=== PATIENT | male | born 1960 | race Hispanic/Latino ===

== ENCOUNTER 2018-02-25 12:25 | Inpatient (IN) | payer OTHER, BC ==
--- NOTE | 2018-02-25 12:46 | ED PDOC ---
Arrival/HPI - General Chief Complaint: Psychiatric Evaluation Time Seen by Provider: 02/25/18 12:45 Historian: Patient - History of Present Illness Narrative History of Present Illness (Text): 02/25/18 12:46 This 58 yo male with pmh PTSD, and anxiety, presents to this ED c/o feeling anxious, and with suicidal ideation for about a week. Patient stated he is in a relationship with a woman. He stated he has had a few problems with his girlfriend. He stated he is not able to get this issues off his head. He is concern for his safety. He has been thinking of taking pills, or jumping off a bridge. Denies other somatic complains. Time/Duration: Other (see hpi) Context: Home Past Medical History - Provider Review Nursing Documentation Reviewed: Yes - Infectious Disease Hx of Infectious Diseases: None - Cardiac Hx Hypertension: Yes - Pulmonary Hx Respiratory Disorders: No - Neurological Hx Neurological Disorder: No - HEENT Hx HEENT Disorder: No - Renal Hx Renal Disorder: No - Endocrine/Metabolic Hx Endocrine Disorders: No - Hematological/Oncological Hx Blood Disorders: No - Integumentary Hx Dermatological Disorder: No - Musculoskeletal/Rheumatological Hx Musculoskeletal Disorders: No - Gastrointestinal Hx Gastrointestinal Disorders: No - Genitourinary/Gynecological Hx Genitourinary Disorders: No - Psychiatric Hx Anxiety: Yes Hx Depression: Yes Hx Post Traumatic Stress Disorder: Yes Hx Substance Use: No - Surgical History Hx Orthopedic Surgery: Yes (b/l shldr, b/l knees) Family/Social History - Physician Review Nursing Documentation Reviewed: Yes Family/Social History: Other (noncontributory) Smoking Status: Never Smoked Hx Alcohol Use: No Hx Substance Use: No Allergies/Home Meds Allergies/Adverse Reactions: Allergies No Known Allergies Allergy (Verified 02/25/18 12:46) Home Medications: Home Meds Medication Instructions Recorded Confirmed Unobtainable 02/25/18 02/25/18 Review of Systems - Review of Systems Constitutional: Normal. absent: Fatigue, Weight Change, Fevers Eyes: Normal ENT: Normal Respiratory: Normal Cardiovascular: Normal Gastrointestinal: Normal Genitourinary Male: Normal Musculoskeletal: Normal Skin: Normal Neurological: Normal Endocrine: Normal Hemo/Lymphatic: Normal Psychiatric: Anxiety, Depression, Suicidal Ideation, Other (denies HI) Physical Exam Vital Signs Temp Pulse Resp BP Pulse Ox 02/25/18 12:54 98.7 F 103 H 18 177/115 H 99 Temperature: Afebrile Blood Pressure: Normal Pulse: Regular Respiratory Rate: Normal Appearance: Positive for: Well-Appearing, Non-Toxic, Comfortable Pain Distress: None Mental Status: Positive for: Alert and Oriented X 3 - Systems Exam Head: Present: Atraumatic, Normocephalic Pupils: Present: PERRL Extroacular Muscles: Present: EOMI Conjunctiva: Present: Normal Mouth: Present: Moist Mucous Membranes Neck: Present: Normal Range of Motion Respiratory/Chest: Present: Clear to Auscultation, Good Air Exchange. No: Respiratory Distress, Accessory Muscle Use Cardiovascular: Present: Regular Rate and Rhythm, Normal S1, S2. No: Murmurs Abdomen: No: Tenderness, Distention, Peritoneal Signs Back: Present: Normal Inspection Upper Extremity: Present: Normal Inspection. No: Cyanosis, Edema Lower Extremity: Present: Normal Inspection. No: Edema Neurological: Present: GCS=15, CN II-XII Intact, Speech Normal Skin: Present: Warm, Dry, Normal Color. No: Rashes Psychiatric: Present: Alert, Oriented x 3, Anxious, Depressed Mood, Suicidal Ideation. No: Homicidal Ideation, Delusional, Hallucinations, Intoxicated Medical Decision Making ED Course and Treatment: 02/25/18 13:15 Patient is medical clear for psychiatric admission 02/25/18 13:38 Soraida LEDESMA saw patient , and spoke with Dr. Rivas who recommended admission. Patient already signed consent for admission. Dx. Major Depression Re-evaluation Time: 13:39 Reassessment Condition: Re-examined, Improving,but remains with symptoms - Lab Interpretations Lab Results: 02/25/18 13:10 02/25/18 13:10 Lab Results 02/25/18 13:10: Alcohol, Quantitative < 10 02/25/18 13:10: Salicylates < 1 L, Acetaminophen < 10.0 L 02/25/18 13:10: Sodium 137, Potassium 3.7, Chloride 99, Carbon Dioxide 26, Anion Gap 15, BUN 10, Creatinine 0.5 L, Est GFR ( Amer) > 60, Est GFR ( Non-Af Amer) > 60, Random Glucose 135 H, Calcium 9.8, Magnesium 1.8, Total Bilirubin 0.7, AST 31, ALT 42, Alkaline Phosphatase 72, Total Protein 7.2, Albumin 4.5, Globulin 2.7, Albumin/Globulin Ratio 1.7 02/25/18 13:10: WBC 10.5, RBC 4.86, Hgb 14.3, Hct 41.2 L, MCV 84.8, MCH 29.4, MCHC 34.7, RDW 12.9, Plt Count 354, MPV 9.2, Gran % 82.1 H, Lymph % (Auto) 10.4 L, [place] % (Auto) 6.4 H, Eos % (Auto) 0.7 L, Baso % (Auto) 0.4, Gran # 8.64 H, Lymph # (Auto) 1.1 L, [place] # (Auto) 0.7 H, Eos # (Auto) 0.1, Baso # (Auto) 0.04 I have reviewed the lab results: Yes Interpretation: No clinic. lab abnormalty - RAD Interpretation Narrative RAD Interpretations (Text): 02/25/18 13:30 CHEST X-RAYS: FINDINGS: LUNGS: No active pulmonary disease. PLEURA: No significant pleural effusion identified, no pneumothorax apparent. CARDIOVASCULAR: Normal. OSSEOUS STRUCTURES: No significant abnormalities. VISUALIZED UPPER ABDOMEN: Normal. OTHER FINDINGS: None. IMPRESSION: No active disease. Radiology Orders: 02/25/18 12:45 CHEST PORTABLE [RAD] Stat - Medication Orders Current Medication Orders: Discontinued Medications Lorazepam (Ativan) 1 mg PO ONCE ONE PRN Reason: Protocol Stop: 02/25/18 12:47 Last Admin: 02/25/18 13:01 Dose: 1 mg Disposition/Present on Arrival - Present on Arrival Any Indicators Present on Arrival: No History of DVT/PE: No History of Uncontrolled Diabetes: No Urinary Catheter: No History of Decub. Ulcer: No History Surgical Site Infection Following: None - Disposition Have Diagnosis and Disposition been Completed?: Yes Diagnosis: Major depression Disposition: HOSPITALIZED Disposition Time: 13:40 Patient Plan: Admission Patient Problems: Current Active Problems Problem Status Onset Major depression Acute Condition: STABLE Forms: [email or web address] (Djiboutian)
[2018-02-25 13:16] LABS: BASO # 0.04 K/mm3 (0.0-2.0); BASO % 0.4 % (0.0-3.0); EOS # 0.1 (0.0-0.7); EOS % 0.7 % (1.5-5.0); GRAN # 8.64 (1.4-6.5); GRAN % 82.1 % (50.0-68.0); HEMOGLOBIN 14.3 g/dL (14.0-18.0); LYMPH # 1.1 (1.2-3.4); LYMPH % 10.4 % (22.0-35.0); MEAN CELL VOLUME 84.8 fl (80.0-105.0); MEAN CORPUSCULAR HEMOGLOBIN 29.4 pg (25.0-35.0); MEAN CORPUSCULAR HGB CONC 34.7 g/dl (31.0-37.0); MEAN PLATELET VOLUME 9.2 fl (7.0-11.0); MONO # 0.7 (0.1-0.6); MONO % 6.4 % (1.0-6.0); RBC 4.86 10^6/uL (3.5-6.1); RED CELL DISTRIBUTION WIDTH 12.9 % (11.5-14.5); WHITE BLOOD COUNT 10.5 10^3/ul (4.5-11.0)
--- NOTE | 2018-02-25 13:19 | RAD ---
Date of service: 02/25/2018 HISTORY: pes eval COMPARISON: No prior. FINDINGS: LUNGS: No active pulmonary disease. PLEURA: No significant pleural effusion identified, no pneumothorax apparent. CARDIOVASCULAR: Normal. OSSEOUS STRUCTURES: No significant abnormalities. VISUALIZED UPPER ABDOMEN: Normal. OTHER FINDINGS: None. IMPRESSION: No active disease.
[2018-02-25 13:29] LABS: ACETAMINOPHEN < 10.0 ug/ml (10.0-20.0); ALB/GLOB RATIO 1.7 (1.1-1.8); ALBUMIN 4.5 g/dL (3.0-4.8); ALT/SGPT 42 U/L (7-56); AST/SGOT 31 U/L (17-59); BLOOD UREA NITROGEN 10 mg/dL (7-21); CALCIUM 9.8 mg/dL (8.4-10.5); GFR AFRICAN-AMERICAN > 60; GFR NON-AFRICAN AMERICAN > 60; SALICYLATE < 1 mg/dL (2.0-20.0)
--- NOTE | 2018-02-25 14:12 | CARD ---
APPROVED REPORT Date of service: 02/25/2018 EKG Measurement Heart [id number] <Conclusion> Sinus tachycardia Nonspecific ST-T abnormalities Borderline ECG
[2018-02-25 14:29] LABS: URINE BILIRUBIN NEGATIVE (NEGATIVE); URINE BLOOD NEGATIVE (NEGATIVE); URINE GLUCOSE (UA) NEGATIVE (NEGATIVE); URINE LEUKOCYTE ESTERASE TRACE Leu/uL (NEGATIVE); URINE PROTEIN NEGATIVE mg/dL (<30 mg/dL); URINE UROBILINOGEN 0.2 E.U./dL (<1 E.U./dL)
[2018-02-25 14:30] LABS: URINE APPEARANCE CLEAR (CLEAR); URINE COLOR YELLOW (YELLOW)
[2018-02-25 14:37] LABS: URINE BACTERIA FEW (NEG); URINE RBC 0 - 2 /hpf (0-2)
[2018-02-25 14:46] LABS: BENZODIAZEPINES, UR NEGATIVE (NEGATIVE)
[2018-02-25 14:52] LABS: BARBITURATES, UR NEGATIVE (NEGATIVE); OPIATES, UR NEGATIVE (NEGATIVE); PHENCYCLIDINE, UR NEGATIVE (NEGATIVE)
[2018-02-25 15:01] VITALS: O2SAT 97
[2018-02-25] MEDS ORDERED: Alum-Mag Hydrox-Simethicone Susp (30 mL) PO PRN (17:24)
[2018-02-25] MEDS ORDERED: Magnesium Hydroxide Susp 30 ml UD PO PRN (17:25)
--- NOTE | 2018-02-25 19:03 | PCM.BM ---
Treatment Plan Problems - Problems identified on initial assessmt high risk;suicide Date Initiated: 02/25/18 Time Initiated: 19:01 Assessment reference: NA Status: Active hopelessnes.helplessness Date Initiated: 02/25/18 Time Initiated: 19:02 Assessment reference: NA Status: Active ineffective coping Date Initiated: 02/25/18 Time Initiated: 19:03 Assessment reference: NA Status: Active altered sleep pattern Date Initiated: 02/25/18 Time Initiated: 19:03 Assessment reference: NA Status: Active Treatment assets and liabiliti Patient Assests: adapts well, cooperative, ADL independent, good support system , negotiates basic needs, financial stabiity Patient Liabilities: relationship conflicts - Milieu Protocol Maintain good personal hygiene: every shift Encourage regular showers, every shift Remind patient to perform daily oral care, every shift Assist patient to perform ADL's Conduct patient checks and document Observation sheet: Q15 minutes Maintain personal safety: every shift Educate patient to report safety concerns to staff, every shift Monitor environment for contraband/sharps Medication safety: Monitor for expected outcome, potential side effects: every shift, Assess barriers to learning: every shift, Assess readiness for medication education: every shift Family Contact - Goals for Treatment Patient goals for treatment: 'TO GET BETTER" Discharge/Continuing Care - Education Needs Education Needs: Patient Medication, Patient Diagnosis/Disease Process, Patient Coping Skills - Discharge Discharge Criteria: Tolerates medication w/o severe side effects, Free of Suicidal thoughts, Normal sleep pattern, Ability to care for self
--- NOTE | 2018-02-26 13:06 | PCM.PSYCH ---
Initial Psychiatric Evaluation - Initial Psychiatric Evaluation Type of Admission: Voluntary Legal Status: Capacity (pt has a capacity to sign consent for treatment ) Chief Complaint (in patient's own words): "I was in the darkest moment of my life, I pulled over twice with the plan to jump off the bridge, I was thinking about cutting myself, or overdose or jump off the bridge for the past two weeks....but yesterday was the first time when I acted on my thoughts" Patient's Reaction to Hospitalization: pt was admitted for evaluation and stabilization of depressive symptoms, inability to function, pt lost 20Lb for the past three weeks, pt also had SI with the plan to jump off the bridge or hut his wrists or over dose on pills. History of Present Illness and Precipitating Events: Shortly patient is 58 year old male, no history of being admitted to the psychiatric inpatient unit, patient was officially diagnosed with PTSD after , patient was brought in by ambulance for evaluation and stabilization of depressive symptoms, suicidal ideation with a plan to jump off the bridge, despite the fact patient has outpatient psychiatrist patient requires further evaluation and stabilization in acute psychiatric inpatient unit. Patient was seen and examined today at the morning time at the treatment team meeting, patient presented with good personal hygiene, anxious, shaky, good ADLs. Patient seems to be good and unreliable historian, patient reported that he was involved in 2 romantic relationship with a female for the past 2 months, patient reported that the female was bringing her past relationships to the pt "I was feeling hurt and disrespected", as a result pt became severely depressed , "for the past 3 weeks I lost 20 pounds, I was not able to sleep, lost feeling worthless, helpless, guilty, I was feeling like a loser", for the past 2 weeks patient was thinking about ending up his life by overdosing on medications, cutting his wrists, or jump off the bridge. Patient reported he did not try to kill himself up until yesterday. 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 pt reported that he was officially dx with PTSD from , "fire truck noises could trigger me", pt reported to feel very anxious for the past two weeks. pt denied h/o being abuse, denied any trauma. pt denied using alcohol, denied substance abuse, denied smoking. past psych h/o: pt is seeing Dr. Linn, pt was on lexapro for several years 10mg, found to be beneficial, in the past but not now, pt reported xanax was prescribed to him but "no effect, I did not like this medication". Medical h/o: HTN, pt reported being healthy but in ED pt said he has chronic pain in his knee and shoulder s/p surgery. Family h/o: denied pt's in 2014, due to gastric bypass surgery. 02/25/18 13:10 02/25/18 13:10 Lab Results 02/25/18 13:50: Urine Opiates Screen Negative, Urine Methadone Screen Negative, Ur Barbiturates Screen Negative, Ur Phencyclidine Scrn Negative, Ur Amphetamines Screen Negative, U Benzodiazepines Scrn Negative, U Oth Cocaine Metabols Negative, U Cannabinoids Screen Negative 02/25/18 13:50: Urine Color Yellow, Urine Appearance Clear, Urine pH 7.0, Ur Specific [place] 1.010, Urine Protein Negative, Urine Glucose (UA) Negative, Urine Ketones Negative, Urine Blood Negative, Urine Nitrate Negative, Urine Bilirubin Negative, Urine Urobilinogen 0.2, Ur Leukocyte Esterase Trace H, Urine RBC 0 - 2, Urine WBC 2 - 5, Ur Epithelial Cells None, Urine Bacteria Few 02/25/18 13:10: Alcohol, Quantitative < 10 02/25/18 13:10: Salicylates < 1 L, Acetaminophen < 10.0 L 02/25/18 13:10: Sodium 137, Potassium 3.7, Chloride 99, Carbon Dioxide 26, Anion Gap 15, BUN 10, Creatinine 0.5 L, Est GFR ( Amer) > 60, Est GFR ( Non-Af Amer) > 60, Random Glucose 135 H, Calcium 9.8, Magnesium 1.8, Total Bilirubin 0.7, AST 31, ALT 42, Alkaline Phosphatase 72, Total Protein 7.2, Albumin 4.5, Globulin 2.7, Albumin/Globulin Ratio 1.7 02/25/18 13:10: WBC 10.5, RBC 4.86, Hgb 14.3, Hct 41.2 L, MCV 84.8, MCH 29.4, MCHC 34.7, RDW 12.9, Plt Count 354, MPV 9.2, Gran % 82.1 H, Lymph % (Auto) 10.4 L, [place] % (Auto) 6.4 H, Eos % (Auto) 0.7 L, Baso % (Auto) 0.4, Gran # 8.64 H, Lymph # (Auto) 1.1 L, [place] # (Auto) 0.7 H, Eos # (Auto) 0.1, Baso # (Auto) 0.04 Vital Signs Temp Pulse Pulse Resp BP Pulse Ox 02/26/18 06:57 97.7 F 92 H 20 131/85 02/25/18 17:43 87 18 02/25/18 16:00 93 H 114/68 02/25/18 15:00 98.4 F 89 142/79 97 02/25/18 14:09 98.3 F 79 18 145/76 99 02/25/18 12:54 98.7 F 103 H 18 177/115 H 99 pt said ambien "I was feeling stoned at am", willing to try sonata. pt contracted for safety during the interview pt denied h/o suicidal attempts, denied previous psych admissions Current Medications: Active Medications Generic Name Dose Route Start Last Admin Trade Name Freq PRN Reason Stop Dose Admin Acetaminophen 650 mg 02/25/18 17:23 Tylenol 325mg Tab PO Q6H PRN Pain, moderate (4-7) Al Hydrox/Mg Hydrox/Simethicone 30 ml 02/25/18 17:24 Maalox Plus 30 Ml PO DAILY PRN Indigestion / Heartburn Lorazepam 2 mg 02/25/18 17:18 02/26/18 08:45 Ativan PO 2 mg Q6 PRN Administration Anxiety Protocol Lorazepam 2 mg 02/25/18 17:20 Ativan IM Q6H PRN Anxiety Protocol Magnesium Hydroxide 30 ml 02/25/18 17:25 Milk Of Magnesia PO DAILY PRN Constipation Ziprasidone 20 mg 02/25/18 17:21 Geodon Cap PO Q6 PRN Agitation Protocol Ziprasidone 20 mg 02/25/18 17:22 Geodon Inj IM Q6 PRN Agitation Protocol Zolpidem Tartrate 5 mg 02/25/18 17:17 02/25/18 21:28 Ambien PO 5 mg HS PRN Administration Insomnia Protocol Past Psychiatric History - Past Psychiatric History Previous Treatment History: None Prior Professional Help: see HPI Prior Psychiatric Treatment: see HPI At what hospital: see HPI Duration: see HPI Nature of Treatment: see HPI Explanation of prior treatment: see HPI History of Abuse: see HPI History of ETOH/Drug Use: see HPI History of Family Illness: see HPI Pertinent Medical Hx (Current Medical&Sleep Prob, Allergies): Allergies Allergy/AdvReac Type Severity Reaction Status Date / Time No Known Allergies Allergy Verified 02/25/18 18:28 Unobtainable 02/25/18 Review of Systems - Review of Systems Systems not reviewed;Unavailable: Acuity of Condition - EENT Eyes: As Per HPI Ears: As Per HPI Nose/Mouth/Throat: As Per HPI - Cardiovascular Cardiovascular: As Per HPI - Respiratory Respiratory: As Per HPI - Gastrointestinal Gastrointestinal: As Per HPI - Genitourinary Genitourinary: As Per HPI - Reproductive: Male Reproductive:Male: As Per HPI - Musculoskeletal Musculoskeletal: As Par HPI - Integumentary Integumentary: As Per HPI - Neurological Neurological: As Per HPI - Psychiatric Psychiatric: As Per HPI - Endocrine Endocrine: As Per HPI - Hematologic/Lymphatic Hematologic: As Per HPI Mental Status Examination - Personal Presentation Personal Presentation: Looks stated age - Affect Affect: Flat - Motor Activity Motor Activity: Calm - Reliability in Providing Information Reliability in Providing Information: Fair - Speech Speech: Organized - Mood Mood: Depressed ("I don't know how to feel, i feel empty, I don't know how I feel to be alive"), Anxious - Formal Thought Process Formal Thought Process: No Impairment - Obsessions/Compulsions Obsessions: None Compulsions: None - Cognitive Functions Orientation: Person, Place, Situation, Time Attention/Concentration: Attentive Abstract Thinking: As evidence by abstract perception of proverbs Estimate of Intelligence: Average Judgement: Intact, as evidence by: Insight regarding need for hospitalization - Risk Risk: Suicidal, Diminished functioning - Strength & Assets Inventory Strength & Assets Inventory: Intelligence, Family support, Employment status, Employment history, Skills, Life experience, Cooperative - Limitations Limitations: Other (suicidal ideations and plan) DSM 5 DX - DSM 5 DSM 5 Diagnosis: 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 PTSD as per h/o - Recommended/Plan of Treatment Treatment Recommendations and Plan of Treatment: Milieu/structure/supportive therapy Medical consult appreciated, see medical team note for more detailed info SW consultation for discharge plan and social issues Med management d/c lexapro start Prozac for depression and anxiety will d/c ambied and xanax will start sonata 5mg am for insomnia klonopin 0.5mg po bid for anxiety Family involvement Follow up on labs Will monitor closely Pt was educated about risk/benefits and alternatives of medications, coping strategies (safety plan, suicide prevention), relapse prevention, importance of follow up with psychiatrist and therapist, stay away from drugs/alcohol/smoking Projected ELOS: 7days Prognosis: fair Discharge Plan and Discharge Criteria: Pt will be not depressed or manic, will be more hopeful, will be not psychotic or anxious, will be not having thoughts of harming self or others, will be tolerating medications well, will not have major side effects, will be able to function, will not pose threat to self or others. - Smoking Cessation Smoking Cessation Initiated: No Reason for not providing: denied smoking
--- NOTE | 2018-02-27 15:40 | PCM.PYCHPN ---
Psychiatric Progress Note - Psychiatric Progress Note Patient seen today, length of contact: 30 minutes Patient Chief Complaint: "I M still depressed, I want to kill myself" denied intent or plan Problems Identified/Issues Discussed: Suicide/ homicide prevention, past psychiatric h/o, current psychiatric symptoms , medical problems, risk/benefits and alternatives of medications, medications compliance, coping strategies, substance abuse h/o, relapse prevention, importance of follow up with psychiatrist and therapist, discharge plan. Medical Problems: HTN Diagnostic Results: 02/25/18 13:10 02/25/18 13:10 Lab Results 02/25/18 13:50: Urine Opiates Screen Negative, Urine Methadone Screen Negative, Ur Barbiturates Screen Negative, Ur Phencyclidine Scrn Negative, Ur Amphetamines Screen Negative, U Benzodiazepines Scrn Negative, U Oth Cocaine Metabols Negative, U Cannabinoids Screen Negative 02/25/18 13:50: Urine Color Yellow, Urine Appearance Clear, Urine pH 7.0, Ur Specific [place] 1.010, Urine Protein Negative, Urine Glucose (UA) Negative, Urine Ketones Negative, Urine Blood Negative, Urine Nitrate Negative, Urine Bilirubin Negative, Urine Urobilinogen 0.2, Ur Leukocyte Esterase Trace H, Urine RBC 0 - 2, Urine WBC 2 - 5, Ur Epithelial Cells None, Urine Bacteria Few 02/25/18 13:10: Alcohol, Quantitative < 10 02/25/18 13:10: Salicylates < 1 L, Acetaminophen < 10.0 L 02/25/18 13:10: Sodium 137, Potassium 3.7, Chloride 99, Carbon Dioxide 26, Anion Gap 15, BUN 10, Creatinine 0.5 L, Est GFR ( Amer) > 60, Est GFR ( Non-Af Amer) > 60, Random Glucose 135 H, Calcium 9.8, Magnesium 1.8, Total Bilirubin 0.7, AST 31, ALT 42, Alkaline Phosphatase 72, Total Protein 7.2, Albumin 4.5, Globulin 2.7, Albumin/Globulin Ratio 1.7 02/25/18 13:10: WBC 10.5, RBC 4.86, Hgb 14.3, Hct 41.2 L, MCV 84.8, MCH 29.4, MCHC 34.7, RDW 12.9, Plt Count 354, MPV 9.2, Gran % 82.1 H, Lymph % (Auto) 10.4 L, [place] % (Auto) 6.4 H, Eos % (Auto) 0.7 L, Baso % (Auto) 0.4, Gran # 8.64 H, Lymph # (Auto) 1.1 L, [place] # (Auto) 0.7 H, Eos # (Auto) 0.1, Baso # (Auto) 0.04 Vital Signs Temp Pulse Pulse Resp BP Pulse Ox 02/27/18 06:50 97.2 F L 81 20 125/81 02/26/18 16:00 94 H 137/86 02/26/18 06:57 97.7 F 92 H 20 131/85 02/25/18 17:43 87 18 02/25/18 16:00 93 H 114/68 02/25/18 15:00 98.4 F 89 142/79 97 02/25/18 14:09 98.3 F 79 18 145/76 99 02/25/18 12:54 98.7 F 103 H 18 177/115 H 99 DSM 5 Symptoms Update: Shortly patient is 58 year old male, no history of being admitted to the psychiatric inpatient unit, patient was officially diagnosed with PTSD after 911, patient was brought in by ambulance for evaluation and stabilization of depressive symptoms, suicidal ideation with a plan to jump off the bridge, despite the fact patient has outpatient psychiatrist patient requires further evaluation and stabilization in acute psychiatric inpatient unit. Patient was seen and examined today at the treatment team meeting. as per staff pt is self isolating, was not participating in the unit activities. pt is compliant with meds, but very passive in the tx. pt reports that he feels depressed/hopeless and "I am still suicidal", but denied any intent or plan to kill self. pt seems to have attachment problems, pt wanted to kill self over the girlfriend which he knows only 2 months. CBT implemented, pt was given assignment to think about future plans in regards of relationship "because I don't come up with decision yet", pt did not brake up , did not have conversation with his girlfriend, she is calling pt and his family, seems to be concerned. Impression: 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 PTSD as per h/o Medication Change: Yes (Klonopin increased, Prozac increased, somewhat increased ) Medical Record Reviewed: Yes Consults ordered or reviewed: pt is healthy no physical complaints Mental Status Examination - Cognitive Function Orientation: Person, Place, Situation, Time Memory: Intact Attention: Poor Concentration: Poor Association: WNL Fund of Knowledge: WNL - Mood Mood: Depressed ("I don't know how to feel, i feel empty, I don't know how I feel to be alive"), Anxious - Affect Affect: Flat - Formal Thought Process Formal Thought Process: No Impairment - Suicidal Ideation Suicidal Ideation: No - Homicidal Ideation Homicidal Ideation: No Goal/Treatment Plan - Goal/Treatment Plan Need for Continued Stay: Remain at risks for inpatient hospitalization, Severe depression anxiety, Discharge may exacerbated symptoms, Severe functional impairment Progress Toward Problem(s) and Goals/Treatment Plan: Milieu/structure/supportive therapy Medical consult appreciated, see medical team note for more detailed info SW consultation for discharge plan and social issues Med management d/c lexapro Prozac 20 mg for depression and anxiety will increase sonata 10mg am for insomnia klonopin 1mg po bid for anxiety Family involvement Follow up on labs Will monitor closely Pt was educated about risk/benefits and alternatives of medications, coping strategies (safety plan, suicide prevention), relapse prevention, importance of follow up with psychiatrist and therapist, stay away from drugs/alcohol/smoking Estimated Date of D/C: 03/07/18
--- NOTE | 2018-02-28 15:21 | PCM.PYCHPN ---
Psychiatric Progress Note - Psychiatric Progress Note Patient seen today, length of contact: 30 minutes Patient Chief Complaint: "I am still depressed, I want to kill myself, I am not ready to talk with my girlfriend, I do not think that we will be back together" Problems Identified/Issues Discussed: Suicide/ homicide prevention, past psychiatric h/o, current psychiatric symptoms , medical problems, risk/benefits and alternatives of medications, medications compliance, coping strategies, substance abuse h/o, relapse prevention, importance of follow up with psychiatrist and therapist, discharge plan. Medical Problems: HTN Diagnostic Results: 02/25/18 13:10 02/25/18 13:10 Lab Results 02/25/18 13:50: Urine Opiates Screen Negative, Urine Methadone Screen Negative, Ur Barbiturates Screen Negative, Ur Phencyclidine Scrn Negative, Ur Amphetamines Screen Negative, U Benzodiazepines Scrn Negative, U Oth Cocaine Metabols Negative, U Cannabinoids Screen Negative 02/25/18 13:50: Urine Color Yellow, Urine Appearance Clear, Urine pH 7.0, Ur Specific [place] 1.010, Urine Protein Negative, Urine Glucose (UA) Negative, Urine Ketones Negative, Urine Blood Negative, Urine Nitrate Negative, Urine Bilirubin Negative, Urine Urobilinogen 0.2, Ur Leukocyte Esterase Trace H, Urine RBC 0 - 2, Urine WBC 2 - 5, Ur Epithelial Cells None, Urine Bacteria Few 02/25/18 13:10: Alcohol, Quantitative < 10 02/25/18 13:10: Salicylates < 1 L, Acetaminophen < 10.0 L 02/25/18 13:10: Sodium 137, Potassium 3.7, Chloride 99, Carbon Dioxide 26, Anion Gap 15, BUN 10, Creatinine 0.5 L, Est GFR ( Amer) > 60, Est GFR ( Non-Af Amer) > 60, Random Glucose 135 H, Calcium 9.8, Magnesium 1.8, Total Bilirubin 0.7, AST 31, ALT 42, Alkaline Phosphatase 72, Total Protein 7.2, Albumin 4.5, Globulin 2.7, Albumin/Globulin Ratio 1.7 02/25/18 13:10: WBC 10.5, RBC 4.86, Hgb 14.3, Hct 41.2 L, MCV 84.8, MCH 29.4, MCHC 34.7, RDW 12.9, Plt Count 354, MPV 9.2, Gran % 82.1 H, Lymph % (Auto) 10.4 L, [place] % (Auto) 6.4 H, Eos % (Auto) 0.7 L, Baso % (Auto) 0.4, Gran # 8.64 H, Lymph # (Auto) 1.1 L, [place] # (Auto) 0.7 H, Eos # (Auto) 0.1, Baso # (Auto) 0.04 Vital Signs Temp Pulse Pulse Resp BP Pulse Ox 02/27/18 06:50 97.2 F L 81 20 125/81 02/26/18 16:00 94 H 137/86 02/26/18 06:57 97.7 F 92 H 20 131/85 02/25/18 17:43 87 18 02/25/18 16:00 93 H 114/68 02/25/18 15:00 98.4 F 89 142/79 97 02/25/18 14:09 98.3 F 79 18 145/76 99 02/25/18 12:54 98.7 F 103 H 18 177/115 H 99 Temp Pulse Resp BP Pulse Ox 98.0 F 88 20 124/85 97 02/28/18 06:44 02/28/18 06:44 02/28/18 06:44 02/28/18 06:44 02/25/18 15:00 DSM 5 Symptoms Update: Shortly patient is 58 year old male, no history of being admitted to the psychiatric inpatient unit, patient was officially diagnosed with PTSD after 911, patient was brought in by ambulance for evaluation and stabilization of depressive symptoms, suicidal ideation with a plan to jump off the bridge, despite the fact patient has outpatient psychiatrist patient requires further evaluation and stabilization in acute psychiatric inpatient unit. Patient was seen and examined today next to the nursing station, pt reported that he still feels depressed and "I still have thoughts of killing myself", pt was given assignment about his relationship with his girlfriend, pt was brushing this sign writer hand off saying that he is not ready to think about it. (of note pt wanted to end up his life by jumping off the bridge because his 2month relationship girlfriend was bringing her previous romantic relationship into current relationship), pt is dramatic, crying nonstop, self isolating, not participating in unit activities, was not attending groups, laying in bed all day long. pt is compliant with meds, but very passive in the tx. pt seems to have attachment problems, pt wanted to kill self over the girlfriend which he knows only 2 months. CBT implemented, pt is not receptive. Patient tolerates medications well, no side effects observed or reported. Aims 0 , no EPS. Impression: 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 PTSD as per h/o Medication Change: Yes (sonata d/c, ambien started, all meds increased 02/27/18. ) Medical Record Reviewed: Yes Mental Status Examination - Cognitive Function Orientation: Person, Place, Situation, Time Memory: Intact Attention: Poor Concentration: Poor Association: WNL Fund of Knowledge: WNL - Mood Mood: Depressed ("I don't know how to feel, i feel empty, I don't know how I feel to be alive"), Anxious - Affect Affect: Flat - Formal Thought Process Formal Thought Process: No Impairment - Suicidal Ideation Suicidal Ideation: No - Homicidal Ideation Homicidal Ideation: No Goal/Treatment Plan - Goal/Treatment Plan Need for Continued Stay: Remain at risks for inpatient hospitalization, Severe depression anxiety, Discharge may exacerbated symptoms, Severe functional impairment Progress Toward Problem(s) and Goals/Treatment Plan: Milieu/structure/supportive therapy Medical consult will be considered SW consultation for discharge plan and social issues Med management d/c lexapro Prozac 20 mg for depression and anxiety Sonata was discontinued ambien 5mg po hs for insomnia klonopin 1mg po bid for anxiety Family involvement Follow up on labs Will monitor closely Pt was educated about risk/benefits and alternatives of medications, coping strategies (safety plan, suicide prevention), relapse prevention, importance of follow up with psychiatrist and therapist, stay away from drugs/alcohol/smoking Estimated Date of D/C: 03/07/18
--- NOTE | 2018-03-01 09:14 | PCM.PYCHPN ---
Psychiatric Progress Note - Psychiatric Progress Note Patient seen today, length of contact: 30 minutes Patient Chief Complaint: "very depressed" Problems Identified/Issues Discussed: I reviewed assessment and recent notes. Patient was interviewed at bedside. His grooming is fair and he remains well-oriented to location, month, year and circumstances. Affect is constricted and he continues to report profound depression, unchanged since yesterday. Again he states "I still have thoughts of killing myself". He appears depressed and solemn but not apathetic. He denies perceptual disturbance and thought process is coherent. Staff notes indicate that he has been a little more engaged recently. Attended and participated in group discussion yesterday. He still remains vegetative and isolative for the most part. Patient denies any new pain, discomfort or pain. There were no behavioral issues overnight. Diagnostic Results: 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 PTSD as per h/o Medication Change: No ( ) Medical Record Reviewed: Yes Mental Status Examination - Cognitive Function Orientation: Person, Place, Situation, Time Memory: Intact Attention: Poor Concentration: Poor Association: WNL Fund of Knowledge: WNL - Mood Mood: Depressed ("I don't know how to feel, i feel empty, I don't know how I feel to be alive"), Anxious - Affect Affect: Flat - Formal Thought Process Formal Thought Process: No Impairment - Suicidal Ideation Suicidal Ideation: No - Homicidal Ideation Homicidal Ideation: No Goal/Treatment Plan - Goal/Treatment Plan Need for Continued Stay: Remain at risks for inpatient hospitalization, Severe depression anxiety, Discharge may exacerbated symptoms, Severe functional impairment Progress Toward Problem(s) and Goals/Treatment Plan: * c/w current tx and plan * No new lab results thus far * Vitals reviewed and noted below: Selected Entries 03/01/18 06:49 Temperature 98.4 F Pulse Rate 73 Respiratory 20 Rate Blood Pressure 123/79 Estimated Date of D/C: 03/07/18
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
[2018-03-03 07:39] LABS: HEMOGLOBIN 13.7 g/dL (14.0-18.0); MEAN CELL VOLUME 86.9 fl (80.0-105.0); MEAN CORPUSCULAR HGB CONC 33.4 g/dl (31.0-37.0); MEAN PLATELET VOLUME 9.2 fl (7.0-11.0); RBC 4.72 10^6/uL (3.5-6.1); RED CELL DISTRIBUTION WIDTH 13.2 % (11.5-14.5); WHITE BLOOD COUNT 7.7 10^3/ul (4.5-11.0)
[2018-03-03 08:00] LABS: ALB/GLOB RATIO 1.5 (1.1-1.8); ALBUMIN 3.9 g/dL (3.0-4.8); ALT/SGPT 31 U/L (7-56); AST/SGOT 21 U/L (17-59); BLOOD UREA NITROGEN 15 mg/dL (7-21); CALCIUM 9.3 mg/dL (8.4-10.5); GFR AFRICAN-AMERICAN > 60; GFR NON-AFRICAN AMERICAN > 60
--- NOTE | 2018-03-03 08:35 | CON ---
Copied To: Kalin Lott DO Attending MD: Kalin Lott DO DATE: 03/02/2018 HISTORY OF PRESENT ILLNESS: I was called to the Psychiatric unit to do medical consult on him. He is a 58-year-old man, who presented to the emergency room feeling very anxious and suicidal for about a week. He is . He is having problems with his girlfriend. issues of his head. He is concerned for his safety. He has been thinking about taking pills, jumping off the bridge; as of this morning, he is still thinking about hurting himself. PAST MEDICAL HISTORY: He has a past medical history of hypertension, anxiety, depression in the past. He has had bilateral shoulder and bilateral knee surgeries. FAMILY HISTORY: Hypertension in the family. SOCIAL HISTORY: He never smoked. No alcohol. No drugs. ALLERGIES. NO KNOWN DRUG ALLERGIES. MEDICATIONS: He does not have any medications now. REVIEW OF SYSTEMS: No acute vision or hearing changes. No sore throat. No chest pain or palpitations. No shortness of breath or cough. No abdominal pain, nausea, vomiting, constipation, diarrhea. No arm aches, leg aches or back aches. The skin as far as he knows is intact. No ulcers or rashes. He is alert and oriented x3. No weakness or numbness. He is quite depressed and suicidal. No homicidal thoughts. PHYSICAL EXAMINATION: GENERAL: He is well appearing at this time. He was trying to take rest in the bed in the psychiatric floor, nontoxic, comfortable. He is alert and oriented x3, pleasant. VITAL SIGNS: He has a 98.7 temp, 103 pulse, 18 respiratory rate, 117/115 blood pressure in the emergency room, 99% O2 saturation. We will keep an eye on blood pressure and his pulse. HEENT: His head is atraumatic, normocephalic. Extraocular muscles intact. Pupil equally reactive to light. Throat is moist. NECK: Supple. HEART: Regular rate. Normal S1 and S2. LUNGS: Decreased breath sounds but clear to auscultation. ABDOMEN: Soft, nontender. Positive bowel sounds. No guarding. No rebound. No CVA tenderness. EXTREMITIES: No edema. NEUROLOGIC: GCS is 15. Cranial nerves II through XII grossly intact. Speech is normal. He can stick out his tongue midline. He can close his eyes tight. He can follow my finger in H sign. He can put his arms over his head. From what I could tell, he is alert and oriented x3. SKIN: Warm and dry. No apparent rashes or ulcers appreciated. LYMPHATICS: Thyroid midline. No palpable lymphadenopathy. DIAGNOSTIC DATA: He had multiple tests done. He had a chest x-ray that was clear. EKG had showed sinus rajesh although when he came in, his pulse was tachy. LABORATORY DATA: He has a urine drug screen which is normal, he has a urine that was trace. He had a 137 sodium, potassium 3.7, BUN 10, creatinine 0.5. GFR is greater than 60. Sugar is 135, which is high. Calcium is 9.8, magnesium 1.8, total bili is 0.7. AST 31, ALT is 42, alk phos is 72. Total protein 7.2, albumin is 4.5. White count is 7.5, hemoglobin 14.3, hematocrit 41.2, platelets of 354. ASSESSMENT AND PLAN: At this time, I am going to order labs for tomorrow. I am also going to order hemoglobin A1c. In his last vital signs, he had a 124/84 blood pressure; I will watch his blood pressure and may add blood pressure medications to his list of medications if it continues to be borderline, and I will check him tomorrow not having hemoglobin A1c issues for diabetes. He is here for depression, anxiety, suicidal, borderline blood pressure, high blood sugar x1, could be stress. Kalin Lott DO MTDPhyllis
--- NOTE | 2018-03-03 09:11 | PN ---
Copied To: Kalin Lott DO Attending MD: Kalin Lott DO DATE: 03/03/2018 SUBJECTIVE: He was sleeping this morning in the room in psychiatric floor. He slept some last night. He told me he feels a little bit better overall since when he came in. He is still suicidal, but maybe not as bed. He feels like he is staring to lift that feeling. He is comfortable now. MEDICATIONS: He is on Ambien, Ativan, Geodon, Klonopin, Maalox, milk of magnesia, Prozac and Tylenol. PHYSICAL EXAMINATION: VITAL SIGNS: He has a 97.7 temp, 83 pulse, 117/78 blood pressure, 20 respiratory rate. HEENT: His head is atraumatic, normocephalic. HEART: Regular rate. LUNGS: Clear to auscultation. ABDOMEN: Soft, nontender. Positive bowel sounds. Obese. EXTREMITIES: No edema. LABORATORY DATA: He has a 7.7 white count, 13.7 hemoglobin, 41 hematocrit with a 315 platelets. He has a 141 sodium, potassium 4.5, BUN 15, creatinine 0.6, GFR is greater than 60, sugar is 99, calcium is 9.3. Total bili is 0.5, AST is 21, ALT is 31, alk phos is 70, total protein 6.5, albumin is 3.9, Globulin 2.6. Urine was trace. Toxicology was negative. ASSESSMENT AND PLAN: Overall, I think he is starting to improve. He was here with suicidal ideation, depression, anxiety. His blood pressure and his blood sugars seemed to have leveled out. At this time, we will continue to watch. I have encouraged him to participate in groups, take his medications, eat the meals and hopefully he will improve. As per Psychiatry, we will follow. Kalin Lott DO
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
--- NOTE | 2018-03-04 13:32 | PN ---
Copied To: Kalin Lott DO Attending MD: Kalin Lott DO DATE: 03/04/2018 SUBJECTIVE: I saw him in his room in the psychiatric floor. He is not sleeping that well here. He is eating okay. He does feel a little bit better than when he came in and thoughts are definitely lifting. He is comfortable. No chest pain or shortness of breath. No abdominal pain. He is He is taking the medications. He is on Abilify, Ambien, Ativan, Geodon, Klonopin, Maalox, milk of magnesia, Prozac, and Tylenol. PHYSICAL EXAMINATION: VITAL SIGNS: He has a 97.9 temperature, 80 pulse, 135/86 blood pressure, 20 respiratory rate. HEAD: His head is atraumatic, normocephalic. HEART: Regular rate. LUNGS: Decreased breath sounds but clear. ABDOMEN: Soft, obese, nontender. EXTREMITIES: No edema. LABORATORY DATA: He has 7.7 white count, 13.7 hemoglobin, 315 platelets. Sodium 141, potassium 4.5, BUN 15, creatinine 0.6, GFR is greater than 60. Hemoglobin A1c is 5.5, calcium is 9.3. Total bilirubin is 0.5, AST is 21, ALT is 31, alk phos is 70. We will continue with aggressive treatment and care as per Psychiatry. I do think he is starting to have the depression lift a little bit. He is here for depression; anxiety; borderline hypertension, we are still watching that; his blood sugar was high, now it is better. Hemoglobin A1c was 5.5. Kalin Lott DO MTDD
--- NOTE | 2018-03-04 16:19 | PCM.PYCHPN ---
Psychiatric Progress Note - Psychiatric Progress Note Patient seen today, length of contact: 30 minutes Patient Chief Complaint: "I do not feel any different, I am still very depressed and hopeless" Problems Identified/Issues Discussed: Suicide/ homicide prevention, past psychiatric h/o, current psychiatric symptoms , medical problems, risk/benefits and alternatives of medications, medications compliance, coping strategies, substance abuse h/o, relapse prevention, importance of follow up with psychiatrist and therapist, discharge plan. Medical Problems: HTN Diagnostic Results: 02/25/18 13:10 02/25/18 13:10 Lab Results 02/25/18 13:50: Urine Opiates Screen Negative, Urine Methadone Screen Negative, Ur Barbiturates Screen Negative, Ur Phencyclidine Scrn Negative, Ur Amphetamines Screen Negative, U Benzodiazepines Scrn Negative, U Oth Cocaine Metabols Negative, U Cannabinoids Screen Negative 02/25/18 13:50: Urine Color Yellow, Urine Appearance Clear, Urine pH 7.0, Ur Specific [place] 1.010, Urine Protein Negative, Urine Glucose (UA) Negative, Urine Ketones Negative, Urine Blood Negative, Urine Nitrate Negative, Urine Bilirubin Negative, Urine Urobilinogen 0.2, Ur Leukocyte Esterase Trace H, Urine RBC 0 - 2, Urine WBC 2 - 5, Ur Epithelial Cells None, Urine Bacteria Few 02/25/18 13:10: Alcohol, Quantitative < 10 02/25/18 13:10: Salicylates < 1 L, Acetaminophen < 10.0 L 02/25/18 13:10: Sodium 137, Potassium 3.7, Chloride 99, Carbon Dioxide 26, Anion Gap 15, BUN 10, Creatinine 0.5 L, Est GFR ( Amer) > 60, Est GFR ( Non-Af Amer) > 60, Random Glucose 135 H, Calcium 9.8, Magnesium 1.8, Total Bilirubin 0.7, AST 31, ALT 42, Alkaline Phosphatase 72, Total Protein 7.2, Albumin 4.5, Globulin 2.7, Albumin/Globulin Ratio 1.7 02/25/18 13:10: WBC 10.5, RBC 4.86, Hgb 14.3, Hct 41.2 L, MCV 84.8, MCH 29.4, MCHC 34.7, RDW 12.9, Plt Count 354, MPV 9.2, Gran % 82.1 H, Lymph % (Auto) 10.4 L, [place] % (Auto) 6.4 H, Eos % (Auto) 0.7 L, Baso % (Auto) 0.4, Gran # 8.64 H, Lymph # (Auto) 1.1 L, [place] # (Auto) 0.7 H, Eos # (Auto) 0.1, Baso # (Auto) 0.04 Vital Signs Temp Pulse Pulse Resp BP Pulse Ox 02/27/18 06:50 97.2 F L 81 20 125/81 02/26/18 16:00 94 H 137/86 02/26/18 06:57 97.7 F 92 H 20 131/85 02/25/18 17:43 87 18 02/25/18 16:00 93 H 114/68 02/25/18 15:00 98.4 F 89 142/79 97 02/25/18 14:09 98.3 F 79 18 145/76 99 02/25/18 12:54 98.7 F 103 H 18 177/115 H 99 Temp Pulse Resp BP Pulse Ox 98.0 F 88 20 124/85 97 02/28/18 06:44 02/28/18 06:44 02/28/18 06:44 02/28/18 06:44 02/25/18 15:00 Temp Pulse Resp BP Pulse Ox 97.7 F 83 20 117/78 97 03/03/18 06:59 03/03/18 06:59 03/03/18 06:59 03/03/18 06:59 02/25/18 15:00 DSM 5 Symptoms Update: Shortly patient is 58 year old male, no history of being admitted to the psychiatric inpatient unit, patient was officially diagnosed with PTSD after 1, patient was brought in by ambulance for evaluation and stabilization of depressive symptoms, suicidal ideation with a plan to jump off the bridge, despite the fact patient has outpatient psychiatrist patient requires further evaluation and stabilization in acute psychiatric inpatient unit. Patient was interviewed nest to the nursing station, patient presented well but claiming that he does not feel any different, patient reports that that she feels hopeless, patient said that he still has suicidal ideation, pt reported that he cannot sleep. pt now wants to apply for disability. pt is mildly grandiose, pt is mildly paranoid. pt is acting childlike and immature. Patient little more engaged recently. Attended and participated in group meetings. pt tolerates meds well, no side effects observed or reported. Diagnostic Results: 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 PTSD as per h/o Medication Change: Yes (abilify increased) Medical Record Reviewed: Yes Consults ordered or reviewed: pt is healthy no physical complaints Mental Status Examination - Cognitive Function Orientation: Person, Place, Situation, Time Memory: Intact Attention: Poor Concentration: Poor Association: WNL Fund of Knowledge: WNL - Mood Mood: Depressed (" ), Anxious - Affect Affect: Flat - Formal Thought Process Formal Thought Process: No Impairment - Suicidal Ideation Suicidal Ideation: No - Homicidal Ideation Homicidal Ideation: No Goal/Treatment Plan - Goal/Treatment Plan Need for Continued Stay: Remain at risks for inpatient hospitalization, Severe depression anxiety, Discharge may exacerbated symptoms, Severe functional impairment Progress Toward Problem(s) and Goals/Treatment Plan: Milieu/structure/supportive therapy Medical consult will be considered SW consultation for discharge plan and social issues Med management Prozac 40 mg for depression and anxiety Sonata was discontinued ambien 5mg po hs for insomnia klonopin 1mg po bid for anxiety abilify 5mg po daily for mood stabilization and ?paranoia Family involvement Follow up on labs Will monitor closely Pt was educated about risk/benefits and alternatives of medications, coping strategies (safety plan, suicide prevention), relapse prevention, importance of follow up with psychiatrist and therapist, stay away from drugs/alcohol/smoking Estimated Date of D/C: 03/07/18
--- NOTE | 2018-03-05 09:34 | PN ---
Copied To: Kalin Lott DO Attending MD: Kalin Lott DO DATE: 03/05/2018 SUBJECTIVE: I saw him sitting out of bed to chair, watching TV today. He tells me he has a hard time getting through these episodes of depression and suicide. He is having his medication adjusted by Psychiatry. He is eating. I think medically he is fairly clear. Psychologically, I do not know if he wants to stay in the Psychiatric Unit for a longer period time or not. PHYSICAL EXAMINATION: VITAL SIGNS: He has a 98 temp, 76 pulse, 114/77 blood pressure, 20 respiratory rate. HEENT: His head is atraumatic, normocephalic. HEART: Regular rate. LUNGS: Decreased breath sounds, but clear. ABDOMEN: Soft, obese. EXTREMITIES: No edema. ASSESSMENT AND PLAN: Medically, he is quite stable, but he tells me he still has this thoughts of suicide, not as bad as when he came in. We will see how Psychiatry wants to handle it. He is on Abilify; Ambien; Ativan; Geodon; Klonopin; magnesium which is Maalox; milk of magnesia; Prozac and Tylenol. We will continue with the aggressive treatment and care as per Psychiatry. He had depression, anxiety. He has a high blood sugar once and hypertensive once. His blood pressure is now 114/77, which is much better. To continue to follow and watch. He is here for suicidal ideation, depression, anxiety as per Psychiatry. We will follow. Kalin Lott DO
--- NOTE | 2018-03-05 16:00 | PCM.PYCHPN ---
Psychiatric Progress Note - Psychiatric Progress Note Patient seen today, length of contact: 30 minutes Patient Chief Complaint: "I want to kill myself, I want to feel better, I am forcing myself to be active , I am not sleeping, I still feel the same" Problems Identified/Issues Discussed: Suicide/ homicide prevention, past psychiatric h/o, current psychiatric symptoms , medical problems, risk/benefits and alternatives of medications, medications compliance, coping strategies, substance abuse h/o, relapse prevention, importance of follow up with psychiatrist and therapist, discharge plan. Medical Problems: HTN Diagnostic Results: 02/25/18 13:10 02/25/18 13:10 Lab Results 02/25/18 13:50: Urine Opiates Screen Negative, Urine Methadone Screen Negative, Ur Barbiturates Screen Negative, Ur Phencyclidine Scrn Negative, Ur Amphetamines Screen Negative, U Benzodiazepines Scrn Negative, U Oth Cocaine Metabols Negative, U Cannabinoids Screen Negative 02/25/18 13:50: Urine Color Yellow, Urine Appearance Clear, Urine pH 7.0, Ur Specific [place] 1.010, Urine Protein Negative, Urine Glucose (UA) Negative, Urine Ketones Negative, Urine Blood Negative, Urine Nitrate Negative, Urine Bilirubin Negative, Urine Urobilinogen 0.2, Ur Leukocyte Esterase Trace H, Urine RBC 0 - 2, Urine WBC 2 - 5, Ur Epithelial Cells None, Urine Bacteria Few 02/25/18 13:10: Alcohol, Quantitative < 10 02/25/18 13:10: Salicylates < 1 L, Acetaminophen < 10.0 L 02/25/18 13:10: Sodium 137, Potassium 3.7, Chloride 99, Carbon Dioxide 26, Anion Gap 15, BUN 10, Creatinine 0.5 L, Est GFR ( Amer) > 60, Est GFR ( Non-Af Amer) > 60, Random Glucose 135 H, Calcium 9.8, Magnesium 1.8, Total Bilirubin 0.7, AST 31, ALT 42, Alkaline Phosphatase 72, Total Protein 7.2, Albumin 4.5, Globulin 2.7, Albumin/Globulin Ratio 1.7 02/25/18 13:10: WBC 10.5, RBC 4.86, Hgb 14.3, Hct 41.2 L, MCV 84.8, MCH 29.4, MCHC 34.7, RDW 12.9, Plt Count 354, MPV 9.2, Gran % 82.1 H, Lymph % (Auto) 10.4 L, [place] % (Auto) 6.4 H, Eos % (Auto) 0.7 L, Baso % (Auto) 0.4, Gran # 8.64 H, Lymph # (Auto) 1.1 L, [place] # (Auto) 0.7 H, Eos # (Auto) 0.1, Baso # (Auto) 0.04 Vital Signs Temp Pulse Pulse Resp BP Pulse Ox 02/27/18 06:50 97.2 F L 81 20 125/81 02/26/18 16:00 94 H 137/86 02/26/18 06:57 97.7 F 92 H 20 131/85 02/25/18 17:43 87 18 02/25/18 16:00 93 H 114/68 02/25/18 15:00 98.4 F 89 142/79 97 02/25/18 14:09 98.3 F 79 18 145/76 99 02/25/18 12:54 98.7 F 103 H 18 177/115 H 99 Temp Pulse Resp BP Pulse Ox 98.0 F 88 20 124/85 97 02/28/18 06:44 02/28/18 06:44 02/28/18 06:44 02/28/18 06:44 02/25/18 15:00 Temp Pulse Resp BP Pulse Ox 97.7 F 83 20 117/78 97 03/03/18 06:59 03/03/18 06:59 03/03/18 06:59 03/03/18 06:59 02/25/18 15:00 DSM 5 Symptoms Update: Shortly patient is 58 year old male, no history of being admitted to the psychiatric inpatient unit, patient was officially diagnosed with PTSD after , patient was brought in by ambulance for evaluation and stabilization of depressive symptoms, suicidal ideation with a plan to jump off the bridge, despite the fact patient has outpatient psychiatrist patient requires further evaluation and stabilization in acute psychiatric inpatient unit. Patient was interviewed Next to the nursing station, patient is dramatic, exaggerating his symptoms, saying "I cannot sleep", as per nursing report patient slept through the night, when patient was confronted patient said "but I am not sleeping", pt also reported that "I feel the same way, I want to jump off the window". at the same time "I don't want to kill myself, hope you will stop my suicidal thoughts". as per collaterals from staff pt called ex- and asked to be "sex partners", as per ex- pt is controlling, jealous. Your medications makes me feel drowsy at the morning, but as per report pt was keep asking for ativan PRN. pt now wants to apply for disability. pt is mildly grandiose, pt is mildly paranoid. Patient little more engaged recently. Attended and participated in group meetings. pt tolerates meds well, no side effects observed or reported, AIMS 0, no EPS. Diagnostic Results: 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 PTSD as per h/o Medication Change: Yes (prozac increased) Medical Record Reviewed: Yes Mental Status Examination - Cognitive Function Orientation: Person, Place, Situation, Time Memory: Intact Attention: Poor Concentration: Poor Association: WNL Fund of Knowledge: WNL - Mood Mood: Depressed (" ), Anxious - Affect Affect: Flat - Formal Thought Process Formal Thought Process: No Impairment - Suicidal Ideation Suicidal Ideation: No - Homicidal Ideation Homicidal Ideation: No Goal/Treatment Plan - Goal/Treatment Plan Need for Continued Stay: Remain at risks for inpatient hospitalization, Severe depression anxiety, Discharge may exacerbated symptoms, Severe functional impairment Progress Toward Problem(s) and Goals/Treatment Plan: Milieu/structure/supportive therapy Medical consult will be considered SW consultation for discharge plan and social issues Med management Prozac 60 mg for depression and anxiety Sonata was discontinued ambien 10mg po hs for insomnia klonopin 1mg po bid for anxiety abilify 5mg po daily for mood stabilization and ?paranoia Family involvement Follow up on labs Will monitor closely Pt was educated about risk/benefits and alternatives of medications, coping strategies (safety plan, suicide prevention), relapse prevention, importance of follow up with psychiatrist and therapist, stay away from drugs/alcohol/smoking Estimated Date of D/C: 03/10/18
--- NOTE | 2018-03-06 09:24 | PN ---
Copied To: Kalin Lott DO Attending MD: Kalin Lott DO DATE: 03/06/2018 SUBJECTIVE: I saw him in the Psychiatric floor. He ate his breakfast well. He is telling me , but he is still very depressed. He is still not feeling well. He cannot shake these thoughts and feelings. He is on Abilify, Ambien, Ativan, Geodon, Klonopin, Maalox, milk of magnesia, Prozac and Tylenol. He is also not sleeping well and he wants to know if he can get something to sleep. PHYSICAL EXAMINATION: VITAL SIGNS: He has a 98 temp, 79 pulse, 136/84 blood pressure, 20 respiratory rate. HEENT: His head is atraumatic, normocephalic. HEART: Regular rate. LUNGS: Clear to auscultation. ABDOMEN: Soft, obese, nontender. EXTREMITIES: No edema. He is eating well. Just has these thoughts of depression. He cannot shake them. LABORATORY DATA: Last blood test was on 03/03/2018. His white count was 7.7, hemoglobin 13.7, hematocrit 41, platelets of 315. He had a 141 sodium, potassium 4.5, BUN 15, creatinine 0.6, GFR is greater than 60, sugar is 99, hemoglobin A1c was 5.5, calcium 9.3, total bili is 0.5, AST is 21, ALT is 31, alkaline phosphatase 70, total protein 6.5. ASSESSMENT AND PLAN: For the most part, he is doing well. He is extremely depressed. Anxiety; hypertension, which is improved and high blood sugar. We will continue to follow. Kalin Lott DO MTDD
--- NOTE | 2018-03-06 09:45 | PCM.PYCHPN ---
Psychiatric Progress Note - Psychiatric Progress Note Patient seen today, length of contact: 30 minutes Patient Chief Complaint: "very depressed" Problems Identified/Issues Discussed: Patient is 58 year old male, psychiatric diagnosis of PTSD s/p 04/08, no prior admissions who was brought in by ambulance for evaluation and stabilization of depressive symptoms, suicidal ideation with a plan to jump off the bridge. Patient has demonstrated moderate improvement in symptoms of depression with Prozac, klonopin and abilify. He has been more engaged. Staff notes that he is attending and participating in group meetings. Patient still reports intermittent, intrusive suicidal thoughts. When I speak to him today, he reports that these thoughts are unwanted and that he doesnt want to but cannot stop thinking about killing himself. He wants the suicidal thoughts to go away. He is tolerating his medications and expresses concern that Prozac is being titrated too quickly. He requests a small decrease as he feels more edgy, tired and disconnected. He is not hallucinating and thought process has generally been coherent during my interviews with him. Diagnostic Results: 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 PTSD as per h/o Medication Change: Yes (Prozac decreased, lithium initiatied) Medical Record Reviewed: Yes Mental Status Examination - Cognitive Function Orientation: Person, Place, Situation, Time Memory: Intact Attention: Poor Concentration: Poor Association: WNL Fund of Knowledge: WNL - Mood Mood: Depressed (" ), Anxious - Affect Affect: Flat - Formal Thought Process Formal Thought Process: No Impairment - Suicidal Ideation Suicidal Ideation: No - Homicidal Ideation Homicidal Ideation: No Goal/Treatment Plan - Goal/Treatment Plan Need for Continued Stay: Remain at risks for inpatient hospitalization, Severe depression anxiety, Discharge may exacerbated symptoms, Severe functional impairment Progress Toward Problem(s) and Goals/Treatment Plan: * c/w current tx and plan * Appreciate f/u by Dr. Lott on 03/06/18 * Abilify 5 mg po daily * Klonopin 1 mg po bid * Prozac 60 mg po daily decreased to 40 mg po daily due to patient's complaints of sedation, edginess and "feeling flat" on 03/06/18 * Ambien 10 mg po HS prn * [place] 150 mg po HS started for suicidal thoughts. I reviewed indications, dosing and possible s/e with patient this morning and he is agreeable to trial * No new lab results * Vitals reviewed and noted below: Selected Entries 03/05/18 03/05/18 06:32 16:00 Temperature 98.0 F Pulse Rate 76 81 Respiratory 20 Rate Blood Pressure 114/77 143/83 Estimated Date of D/C: 03/10/18
[2018-03-06] MEDS ORDERED: Lithium Carbonate Oral Sol 8 MEQ/5 ML PO SCH (22:00)
--- NOTE | 2018-03-07 15:14 | PN ---
Copied To: Kalin Lott DO Attending MD: Kalin Lott DO DATE: 03/07/2018 SUBJECTIVE: I saw him in the psychiatric floor. He is still quite depressed. He slept fair. He is on Abilify, Ambien, Ativan, Geodon, Klonopin, lithium, Maalox, milk of magnesia, Prozac and Tylenol. PHYSICAL EXAMINATION: VITAL SIGNS: Temperature 98.2 temperature, 76 pulse, 131/82 blood pressure, 20 respiratory rate. HEENT: Head is atraumatic, normocephalic. HEART: Regular rate. LUNGS: Clear to auscultation. ABDOMEN: Soft, obese, nontender. EXTREMITIES: No edema. He is walking around. He was eating his meals. He is trying to participate in the groups. He is taking his medications. Last labs on 03/03/2018 were good. As per Psychiatry, adjusting his medications for his severe depression. Hopefully, this will lift a little bit and I could finally maybe talking about discharge planning, but he is definitely, I think, not there yet. Continue aggressive treatment and care. He has got major depressive disorder. He had little bit of hypertensive and a high blood sugar, but they are better now. Kalin Lott DO
--- NOTE | 2018-03-07 15:54 | PCM.PYCHPN ---
Psychiatric Progress Note - Psychiatric Progress Note Patient seen today, length of contact: 30 minutes Patient Chief Complaint: "I want to kill myself, I want to feel better, now I am afraid that my kids will be homeless..." Problems Identified/Issues Discussed: Suicide/ homicide prevention, past psychiatric h/o, current psychiatric symptoms , medical problems, risk/benefits and alternatives of medications, medications compliance, coping strategies, substance abuse h/o, relapse prevention, importance of follow up with psychiatrist and therapist, discharge plan. Medical Problems: HTN Diagnostic Results: 02/25/18 13:10 02/25/18 13:10 Lab Results 02/25/18 13:50: Urine Opiates Screen Negative, Urine Methadone Screen Negative, Ur Barbiturates Screen Negative, Ur Phencyclidine Scrn Negative, Ur Amphetamines Screen Negative, U Benzodiazepines Scrn Negative, U Oth Cocaine Metabols Negative, U Cannabinoids Screen Negative 02/25/18 13:50: Urine Color Yellow, Urine Appearance Clear, Urine pH 7.0, Ur Specific [place] 1.010, Urine Protein Negative, Urine Glucose (UA) Negative, Urine Ketones Negative, Urine Blood Negative, Urine Nitrate Negative, Urine Bilirubin Negative, Urine Urobilinogen 0.2, Ur Leukocyte Esterase Trace H, Urine RBC 0 - 2, Urine WBC 2 - 5, Ur Epithelial Cells None, Urine Bacteria Few 02/25/18 13:10: Alcohol, Quantitative < 10 02/25/18 13:10: Salicylates < 1 L, Acetaminophen < 10.0 L 02/25/18 13:10: Sodium 137, Potassium 3.7, Chloride 99, Carbon Dioxide 26, Anion Gap 15, BUN 10, Creatinine 0.5 L, Est GFR ( Amer) > 60, Est GFR ( Non-Af Amer) > 60, Random Glucose 135 H, Calcium 9.8, Magnesium 1.8, Total Bilirubin 0.7, AST 31, ALT 42, Alkaline Phosphatase 72, Total Protein 7.2, Albumin 4.5, Globulin 2.7, Albumin/Globulin Ratio 1.7 02/25/18 13:10: WBC 10.5, RBC 4.86, Hgb 14.3, Hct 41.2 L, MCV 84.8, MCH 29.4, MCHC 34.7, RDW 12.9, Plt Count 354, MPV 9.2, Gran % 82.1 H, Lymph % (Auto) 10.4 L, [place] % (Auto) 6.4 H, Eos % (Auto) 0.7 L, Baso % (Auto) 0.4, Gran # 8.64 H, Lymph # (Auto) 1.1 L, [place] # (Auto) 0.7 H, Eos # (Auto) 0.1, Baso # (Auto) 0.04 Vital Signs Temp Pulse Pulse Resp BP Pulse Ox 02/27/18 06:50 97.2 F L 81 20 125/81 02/26/18 16:00 94 H 137/86 02/26/18 06:57 97.7 F 92 H 20 131/85 02/25/18 17:43 87 18 02/25/18 16:00 93 H 114/68 02/25/18 15:00 98.4 F 89 142/79 97 02/25/18 14:09 98.3 F 79 18 145/76 99 02/25/18 12:54 98.7 F 103 H 18 177/115 H 99 Temp Pulse Resp BP Pulse Ox 98.0 F 88 20 124/85 97 02/28/18 06:44 02/28/18 06:44 02/28/18 06:44 02/28/18 06:44 02/25/18 15:00 Temp Pulse Resp BP Pulse Ox 97.7 F 83 20 117/78 97 03/03/18 06:59 03/03/18 06:59 03/03/18 06:59 03/03/18 06:59 02/25/18 15:00 DSM 5 Symptoms Update: Shortly patient is 58 year old male, no history of being admitted to the psychiatric inpatient unit, patient was officially diagnosed with PTSD after 1, patient was brought in by ambulance for evaluation and stabilization of depressive symptoms, suicidal ideation with a plan to jump off the bridge, despite the fact patient has outpatient psychiatrist patient requires further evaluation and stabilization in acute psychiatric inpatient unit. Patient was interviewed at the treatment team meeting, patient Presented to be dramatic, saying "I still want to kill myself", at the same time patient has future oriented plans such as apply for disability, patient was requesting this database report writer to feel disability paper, pt was provided with the letter saying that he was hospitalized to the hospital: March 07, 2018 To whom it may concern: This letter is to let you know that Tony Carpio 1960 is hospitalized at [facility] 02/25/18-present. Should you have any questions regarding this matter, please do not hesitate to contact me at . Sincerely, . pt is splitting staff, yesterday convinced to decrease prozac, wanted Li to be started, today said "I hate lithium". pt is mildly grandiose, pt is mildly paranoid. Patient little more engaged recently. but today stormed out from the groups complaining being anxious. pt tolerates meds well, no side effects observed or reported, AIMS 0, no EPS. Diagnostic Results: 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 PTSD as per h/o Medication Change: Yes (lithium d/c as per pt's request klonopin added hs) Medical Record Reviewed: Yes Mental Status Examination - Cognitive Function Orientation: Person, Place, Situation, Time Memory: Intact Attention: Poor Concentration: Poor Association: WNL Fund of Knowledge: WNL - Mood Mood: Depressed (" ), Anxious - Affect Affect: Flat - Formal Thought Process Formal Thought Process: No Impairment - Suicidal Ideation Suicidal Ideation: No - Homicidal Ideation Homicidal Ideation: No Goal/Treatment Plan - Goal/Treatment Plan Need for Continued Stay: Remain at risks for inpatient hospitalization, Severe depression anxiety, Discharge may exacerbated symptoms, Severe functional impairment Progress Toward Problem(s) and Goals/Treatment Plan: Milieu/structure/supportive therapy Medical consult will be considered SW consultation for discharge plan and social issues Med management Prozac 40 mg for depression and anxiety Sonata was discontinued ambien 10mg po hs for insomnia klonopin 1mg po bid and HS for anxiety abilify 5mg po daily for mood stabilization and ?paranoia Family involvement Follow up on labs Will monitor closely Pt was educated about risk/benefits and alternatives of medications, coping strategies (safety plan, suicide prevention), relapse prevention, importance of follow up with psychiatrist and therapist, stay away from drugs/alcohol/smoking patient gave permission to obtain collateral information from he is psychiatrist [phone] as well as family, socially responsible investment adviser left a message to pt' s son. Estimated Date of D/C: 03/10/18
--- NOTE | 2018-03-07 16:45 | PCM.BM ---
Treatment Plan Problems - Problems identified on initial assessmt high risk;suicide Date Initiated: 02/25/18 Time Initiated: 19:01 Assessment reference: NA Status: Active hopelessnes.helplessness Date Initiated: 02/25/18 Time Initiated: 19:02 Assessment reference: NA Status: Active ineffective coping Date Initiated: 02/25/18 Time Initiated: 19:03 Assessment reference: NA Status: Active altered sleep pattern Date Initiated: 02/25/18 Time Initiated: 19:03 Assessment reference: NA Status: Active Treatment assets and liabiliti Patient Assests: adapts well, cooperative, ADL independent, good support system , negotiates basic needs, financial stabiity Patient Liabilities: relationship conflicts - Milieu Protocol Maintain good personal hygiene: every shift Encourage regular showers, every shift Remind patient to perform daily oral care, every shift Assist patient to perform ADL's Conduct patient checks and document Observation sheet: Q15 minutes Maintain personal safety: every shift Educate patient to report safety concerns to staff, every shift Monitor environment for contraband/sharps Medication safety: Monitor for expected outcome, potential side effects: every shift, Assess barriers to learning: every shift, Assess readiness for medication education: every shift Milieu Narrative: Milieu/structure/supportive therapy Medical consult will be considered SW consultation for discharge plan and social issues Med management Prozac 40 mg for depression and anxiety Sonata was discontinued ambien 10mg po hs for insomnia klonopin 1mg po bid and HS for anxiety abilify 5mg po daily for mood stabilization and ?paranoia Family involvement Follow up on labs Will monitor closely Pt was educated about risk/benefits and alternatives of medications, coping strategies (safety plan, suicide prevention), relapse prevention, importance of follow up with psychiatrist and therapist, stay away from drugs/alcohol/smoking patient gave permission to obtain collateral information from he is psychiatrist [phone] as well as family, social media marketing specialist left a message to pt' s son. Family Contact Family involvement: Family/SO is involved Family contact: Patient agrees to contact Family contact name: Tony Napoles IV - Goals for Treatment Patient goals for treatment: 'TO GET BETTER" Discharge/Continuing Care - Education Needs Education Needs: Patient Medication, Patient Diagnosis/Disease Process, Patient Coping Skills - Discharge Discharge Criteria: Tolerates medication w/o severe side effects, Free of Suicidal thoughts, Normal sleep pattern, Ability to care for self - Treatment Team Participation Patient/Family/SO Statement: Milieu/structure/supportive therapy Medical consult will be considered SW consultation for discharge plan and social issues Med management Prozac 40 mg for depression and anxiety Sonata was discontinued ambien 10mg po hs for insomnia klonopin 1mg po bid and HS for anxiety abilify 5mg po daily for mood stabilization and ?paranoia Family involvement Follow up on labs Will monitor closely Pt was educated about risk/benefits and alternatives of medications, coping strategies (safety plan, suicide prevention), relapse prevention, importance of follow up with psychiatrist and therapist, stay away from drugs/alcohol/smoking patient gave permission to obtain collateral information from he is psychiatrist [phone] as well as family, social media marketing specialist left a message to pt' s son. Treatment Plan Review - Problem high risk;suicide Time Initiated: 19:01 hopelessnes.helplessness Time Initiated: 19:02 ineffective coping Time Initiated: 19:03 altered sleep pattern Time Initiated: 19:03
--- NOTE | 2018-03-08 09:53 | PCM.PYCHPN ---
Psychiatric Progress Note - Psychiatric Progress Note Patient seen today, length of contact: 30 minutes Patient Chief Complaint: "very depressed" Problems Identified/Issues Discussed: Patient is 58 year old male, psychiatric diagnosis of PTSD s/p 04/08, no prior admissions who was brought in by ambulance for evaluation and stabilization of depressive symptoms, suicidal ideation with a plan to jump off the bridge. Patient has demonstrated moderate improvement in symptoms of depression with Prozac, klonopin and abilify. He has been more engaged. Staff notes that he is attending and participating in group meetings. Patient has been reporting intermittent and unwanted suicidal thoughts. Patient still states that he doesn't want to but cannot stop thinking about killing himself. He wants the suicidal thoughts to go away. Patient is tolerating his medications and denies any side effects at this time. Reports that he is sleeping better. He is not hallucinating and thought process has generally been coherent during my interviews with him. Despite patient's reports of continued, unrelenting depression and suicidal thoughts (denies plan at this time), he appears brighter and more spontaneous since admission. He has expressed concern about his employment and paying rent. He has also been engaged in discharge planning including applying to the state for disability. Diagnostic Results: 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 PTSD as per h/o Medication Change: No (lithium d/c as per pt's request klonopin added hs) Medical Record Reviewed: Yes Mental Status Examination - Cognitive Function Orientation: Person, Place, Situation, Time Memory: Intact Attention: Poor Concentration: Poor Association: WNL Fund of Knowledge: WNL - Mood Mood: Depressed (" ), Anxious - Affect Affect: Flat - Formal Thought Process Formal Thought Process: No Impairment - Suicidal Ideation Suicidal Ideation: No - Homicidal Ideation Homicidal Ideation: No Goal/Treatment Plan - Goal/Treatment Plan Need for Continued Stay: Remain at risks for inpatient hospitalization, Severe depression anxiety, Discharge may exacerbated symptoms, Severe functional impairment Progress Toward Problem(s) and Goals/Treatment Plan: * c/w current tx and plan * Appreciate f/u by Dr. Lott on 03/06/18 and 03/07/18 * Abilify 5 mg po daily * Klonopin 1 mg po tid * Prozac 40 mg po daily for depression and anxiety * Ambien 10 mg po HS prn * No new lab results * Vitals reviewed and noted below: Selected Entries 03/08/18 06:35 Temperature 98.0 F Pulse Rate 89 Respiratory 20 Rate Blood Pressure 129/97 H Estimated Date of D/C: 03/10/18
--- NOTE | 2018-03-08 18:30 | PN ---
Copied To: Kalin Lott DO Attending MD: Kalin Lott DO DATE: 03/08/2018 SUBJECTIVE: I saw Tony resting comfortably in bed. He slept well last night. He is eating well. He is walking well. This is actually the first day I think he has improved, less depressed. He is on Abilify, Ambien, Ativan, Geodon, Klonopin, Maalox, Milk of Magnesia, Prozac, and Tylenol. OBJECTIVE: VITAL SIGNS: He has 98 temperature, 89 pulse, 129/97 blood pressure, 20 respiratory rate. HEENT: His head is atraumatic, normocephalic. HEART: Regular rate. LUNGS: Clear to auscultation. ABDOMEN: Soft, obese. EXTREMITIES: No edema. Currently, he is on no medication for blood pressure. He has no history of hypertension. He has a very high blood pressure today. His labs were good on the 03/03/2018. I am going to repeat labs tomorrow. I am going to call up and have them take another blood pressure on Tony Napoles, and hopefully would not need any blood pressure medication. He is here for depression, he had one high blood pressure that was the second one and high blood sugars. I do think he is starting to do better. Check his labs tomorrow. Kalin Lott DO MTDD
[2018-03-09 07:37] LABS: ALB/GLOB RATIO 1.4 (1.1-1.8); ALBUMIN 3.8 g/dL (3.0-4.8); ALT/SGPT 31 U/L (7-56); AST/SGOT 17 U/L (17-59); BLOOD UREA NITROGEN 13 mg/dL (7-21); CALCIUM 9.5 mg/dL (8.4-10.5); GFR AFRICAN-AMERICAN > 60; GFR NON-AFRICAN AMERICAN > 60
[2018-03-09 07:44] LABS: HEMOGLOBIN 13.5 g/dL (14.0-18.0); MEAN CELL VOLUME 86.4 fl (80.0-105.0); MEAN CORPUSCULAR HEMOGLOBIN 29.1 pg (25.0-35.0); MEAN CORPUSCULAR HGB CONC 33.7 g/dl (31.0-37.0); MEAN PLATELET VOLUME 9.5 fl (7.0-11.0); RBC 4.64 10^6/uL (3.5-6.1); WHITE BLOOD COUNT 7.9 10^3/ul (4.5-11.0)
--- NOTE | 2018-03-09 08:59 | PCM.PYCHPN ---
Psychiatric Progress Note - Psychiatric Progress Note Patient seen today, length of contact: 30 minutes Patient Chief Complaint: "very depressed" Problems Identified/Issues Discussed: Patient is 58 year old male, psychiatric diagnosis of PTSD s/p 04/08, no prior admissions who was brought in by ambulance for evaluation and stabilization of depressive symptoms, suicidal ideation with a plan to jump off the bridge. Patient has demonstrated moderate improvement in symptoms of depression with Prozac, klonopin and abilify. He has been more engaged. Staff notes that he is attending and participating in group meetings. Patient has been reporting intermittent and unwanted suicidal thoughts. Patient still states that he doesn't want to but cannot stop thinking about killing himself. He wants the suicidal thoughts to go away. Symptoms seem to be triggered when patient interactis with his (former) girlfriend. Patient is tolerating his medications and denies any side effects at this time. Reports that he is sleeping better. He is not hallucinating and thought process has generally been coherent during my interviews with him. Despite patient's reports of continued, unrelenting depression and suicidal thoughts (denies plan at this time), he appears brighter and more spontaneous since admission. He has expressed concern about his employment and paying his rent. He has also been engaged in discharge planning including applying to the state for disability. Nursing staff also notes that patient has indicated that he would like to continue on a dating website. Diagnostic Results: 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 PTSD as per h/o Medication Change: No (lithium d/c as per pt's request klonopin added hs) Medical Record Reviewed: Yes Mental Status Examination - Cognitive Function Orientation: Person, Place, Situation, Time Memory: Intact Attention: WNL Concentration: WNL Association: WNL Fund of Knowledge: WNL - Mood Mood: Depressed ( ), Anxious - Affect Affect: Constricted (does demonstrate some reactivity, improved since admission) - Formal Thought Process Formal Thought Process: No Impairment - Suicidal Ideation Suicidal Ideation: No - Homicidal Ideation Homicidal Ideation: No Goal/Treatment Plan - Goal/Treatment Plan Need for Continued Stay: Remain at risks for inpatient hospitalization, Severe depression anxiety, Discharge may exacerbated symptoms, Severe functional impairment Progress Toward Problem(s) and Goals/Treatment Plan: * c/w current tx and plan * Appreciate f/u by Dr. Lott on 03/06/18, 03/07/18 and 03/08/18~repeat labs noted below * Abilify 5 mg po daily increased to 7 mg po daily on 03/09/18 for continued depression * Klonopin 1 mg po tid * Prozac 40 mg po daily for depression and anxiety * Ambien 10 mg po HS prn * Consider further augmentation with Wellbutrin if optimization of Prozac doesn' t appear beneficial. * Vitals reviewed and noted below: Selected Entries 03/09/18 07:18 Temperature 98.1 F Pulse Rate 76 Respiratory 20 Rate Blood Pressure 124/73 * New weekend labs noted below: Laboratory Results - last 24 hr 03/09/18 03/09/18 06:30 06:30 WBC 7.9 RBC 4.64 Hgb 13.5 L Hct 40.1 L MCV 86.4 MCH 29.1 MCHC 33.7 RDW 13.0 Plt Count 310 MPV 9.5 Sodium 140 Potassium 4.3 Chloride 103 Carbon Dioxide 29 Anion Gap 13 BUN 13 Creatinine 0.6 L Est GFR ( Amer) > 60 Est GFR (Non-Af Amer) > 60 Random Glucose 97 Calcium 9.5 Total Bilirubin 0.6 AST 17 ALT 31 Alkaline Phosphatase 70 Total Protein 6.6 Albumin 3.8 Globulin 2.7 Albumin/Globulin Ratio 1.4 Estimated Date of D/C: 03/10/18
--- NOTE | 2018-03-09 11:51 | PN ---
Copied To: Kalin Lott DO Attending MD: Kalin Lott DO DATE: 03/09/2018 SUBJECTIVE: I saw Tony resting comfortably in bed. He slept fairly well last night. Overall, he is only about 20% improved, he feels. He is still quite depressed. I know Psychiatry is continuing to adjust his medication. He is eating well, going to the bathroom well. No chest pain, no shortness of breath. No abdominal pain. He is on Abilify, Ambien, Ativan, Geodon, Klonopin, Maalox, milk of magnesia, Norvasc, Protonix and Tylenol. OBJECTIVE: VITAL SIGNS: Temperature 98.1, 76 pulse, 124/70 blood pressure and much better, 20 respiratory rate. HEENT: Head is atraumatic, normocephalic. HEART: Regular rate. LUNGS: Clear to auscultation. ABDOMEN: Soft, obese, nontender. EXTREMITIES: No edema. DATA: Altogether, his lab work shows a 7.9 white count, 13.5 hemoglobin, 40.1 hematocrit with 310 platelets. He has a 140 sodium, potassium 4.3, BUN 13, creatinine 0.6. GFR is greater than 60, sugar is 97,calcium is 9.5, total bili is 0.6, AST 17, ALT is 31, alkaline phosphatase is 70, total protein 6.6, albumin is 3.8. Toxicology was clean. He is being seen by Psychiatry. His blood pressure is better. His blood tests are better. Sugar was good as per Psychiatry. I have discussed with him at length. Answered many questions. I do think clinically, he is improving. Hopefully, he will start to feel the same. Kalin Lott DO
--- NOTE | 2018-03-10 09:09 | PCM.PYCHPN ---
Psychiatric Progress Note - Psychiatric Progress Note Patient seen today, length of contact: 30 minutes Patient Chief Complaint: "very depressed" Problems Identified/Issues Discussed: Patient is 58 year old male, psychiatric diagnosis of PTSD s/p 04/08, no prior admissions who was brought in by ambulance for evaluation and stabilization of depressive symptoms, suicidal ideation with a plan to jump off the bridge. Patient has demonstrated moderate improvement in symptoms of depression with Prozac, klonopin and abilify. He has been more engaged. Staff notes that he is attending and participating in group meetings. Generally very pleasant and cooperative upon approach. Patient has been reporting intermittent and unwanted suicidal thoughts--this is an improvement from report constant suicidal thoughts he presented with at admission.. Patient still states that he doesn't want to but cannot stop thinking about killing himself. Feels the suicidal thoughts are intrusive and he wants them to go away . Symptoms seem to be triggered when patient interacts with his (former) girlfriend. Patient is tolerating his medications and denies any side effects at this time. Reports that he is sleeping better. He is not hallucinating and thought process has generally been coherent during my interviews with him. Despite patient's reports of continued, unrelenting depression, "terrible anxiety" and suicidal thoughts (denies any current thoughts at this time), he appears brighter, more spontaneous and future-oriented since admission. He has expressed concern about his employment and paying his rent. He has also been engaged in discharge planning including applying to the state for disability. Nursing staff also notes that patient has indicated that he would like to continue on a dating website. Diagnostic Results: 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 PTSD as per h/o Medication Change: No ( ) Medical Record Reviewed: Yes Mental Status Examination - Cognitive Function Orientation: Person, Place, Situation, Time Memory: Intact Attention: WNL Concentration: WNL Association: WNL Fund of Knowledge: WNL - Mood Mood: Depressed ( ), Anxious - Affect Affect: Constricted (does demonstrate some reactivity, improved since admission) - Formal Thought Process Formal Thought Process: No Impairment - Suicidal Ideation Suicidal Ideation: No - Homicidal Ideation Homicidal Ideation: No Goal/Treatment Plan - Goal/Treatment Plan Need for Continued Stay: Remain at risks for inpatient hospitalization, Severe depression anxiety, Discharge may exacerbated symptoms, Severe functional impairment Progress Toward Problem(s) and Goals/Treatment Plan: * c/w current tx and plan * Appreciate f/u by Dr. Lott on 03/06/18, 03/07/18, 03/08/18 and 03/09/18~repeat labs from 03/09/18 noted below * Abilify 5 mg po daily increased to 7 mg po daily on 03/09/18 for continued depression * Klonopin 1 mg po tid * Prozac 40 mg po daily for depression and anxiety * Ambien 10 mg po HS prn * Consider further augmentation with Wellbutrin if optimization of Prozac doesn' t appear beneficial. * Vitals reviewed and noted below: Selected Entries 03/09/18 07:18 Temperature 98.1 F Pulse Rate 76 Respiratory 20 Rate Blood Pressure 124/73 * New weekend labs noted below: Laboratory Results - last 24 hr 03/09/18 03/09/18 06:30 06:30 WBC 7.9 RBC 4.64 Hgb 13.5 L Hct 40.1 L MCV 86.4 MCH 29.1 MCHC 33.7 RDW 13.0 Plt Count 310 MPV 9.5 Sodium 140 Potassium 4.3 Chloride 103 Carbon Dioxide 29 Anion Gap 13 BUN 13 Creatinine 0.6 L Est GFR ( Amer) > 60 Est GFR (Non-Af Amer) > 60 Random Glucose 97 Calcium 9.5 Total Bilirubin 0.6 AST 17 ALT 31 Alkaline Phosphatase 70 Total Protein 6.6 Albumin 3.8 Globulin 2.7 Albumin/Globulin Ratio 1.4 Estimated Date of D/C: 03/10/18
--- NOTE | 2018-03-10 11:32 | PN ---
Copied To: Kalin Lott DO Attending MD: Kalin Lott DO DATE: 03/10/2018 SUBJECTIVE: I saw Mr. Napoles resting comfortably in bed. He slept well. He is eating well. No chest pain or shortness of breath. No abdominal pain. He is on Abilify, Ambien, Ativan, Geodon, Klonopin, Maalox, milk of magnesia, Norvasc, Prozac and Tylenol. He is still depressed, this is starting to lift slowly. PHYSICAL EXAMINATION: VITAL SIGNS: He has a 98 temperature; 73 pulse; 157/96 blood pressure, was 119/74 yesterday, I added Norvasc and will see how he does; 20 respiratory rate. HEENT: His head is atraumatic, normocephalic. HEART: Regular rate. LUNGS: Clear to auscultation. ABDOMEN: Soft, nontender. Positive bowel sounds. Obese. EXTREMITIES: No edema. LABORATORY DATA: He has a 7.9 white count, 13.5 hemoglobin, 40.1 hematocrit with 310 platelets. Sodium 140, potassium 4.3, BUN 13, creatinine 0.6, GFR is greater than 60, sugar is 97, calcium is 9.5, total bili is 0.6, AST is 17, ALT is 31, alk phos 70, total protein is 6.6. ASSESSMENT AND PLAN: We are checking his blood pressure, also looking for his depression. His blood sugars were okay. We will see how his blood pressure is. I might need to increase his Norvasc if it continues to stay out of 80s with Norvasc 5, I have to go with Norvasc 10 if the next blood pressure is still elevated. Kalin Lott DO
--- NOTE | 2018-03-11 10:39 | PCM.PYCHPN ---
Psychiatric Progress Note - Psychiatric Progress Note Patient seen today, length of contact: 30 minutes Patient Chief Complaint: "a little better" Problems Identified/Issues Discussed: Patient is 58 year old male, psychiatric diagnosis of PTSD s/p 04/08, no prior admissions who was brought in by ambulance for evaluation and stabilization of depressive symptoms, suicidal ideation with a plan to jump off the bridge. Patient has demonstrated moderate improvement in symptoms of depression with Prozac, klonopin and abilify. He has been more engaged. Staff notes that he is attending and participating in group meetings. Generally very pleasant and cooperative upon approach though affect, overall is constricted. Patient has been reporting intermittent and unwanted suicidal thoughts--this is an improvement from report constant suicidal thoughts he presented with at admission. Patient still states that he doesn't want to but cannot stop thinking about killing himself. Today he reports improvement in mood and intrusiveness of these thoughts though he remains depressed. Patient is tolerating his medications and denies any side effects at this time. Reports that he is sleeping better. He is not hallucinating and thought process has generally been coherent during my interviews with him. Diagnostic Results: 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 PTSD as per h/o Medication Change: No ( ) Medical Record Reviewed: Yes Mental Status Examination - Cognitive Function Orientation: Person, Place, Situation, Time Memory: Intact Attention: WNL Concentration: WNL Association: WNL Fund of Knowledge: WNL - Mood Mood: Depressed ( ), Anxious - Affect Affect: Constricted (does demonstrate some reactivity, improved since admission) - Formal Thought Process Formal Thought Process: No Impairment - Suicidal Ideation Suicidal Ideation: No - Homicidal Ideation Homicidal Ideation: No Goal/Treatment Plan - Goal/Treatment Plan Need for Continued Stay: Remain at risks for inpatient hospitalization, Severe depression anxiety, Discharge may exacerbated symptoms, Severe functional impairment Progress Toward Problem(s) and Goals/Treatment Plan: * c/w current tx and plan * Appreciate f/u by Dr. Lott on 03/06/18, 03/07/18, 03/08/18 and 03/09/18~repeat labs from 03/09/18 noted below * Abilify 5 mg po daily increased to 7 mg po daily on 03/09/18 for continued depression * Klonopin 1 mg po tid * Prozac 40 mg po daily increased to 50 mg po daily on 03/11/18 for depression and anxiety * Ambien 10 mg po HS prn * Consider further augmentation with Wellbutrin if optimization of Prozac doesn' t appear beneficial. * Vitals reviewed and noted below: Selected Entries 03/10/18 03/10/18 03/11/18 07:00 08:43 07:02 Temperature 98.0 F 97.8 F Pulse Rate 73 73 82 Respiratory 20 19 Rate Blood Pressure 157/96 H 157/96 H 119/80 * New weekend labs noted below: Laboratory Results - last 24 hr 03/09/18 03/09/18 06:30 06:30 WBC 7.9 RBC 4.64 Hgb 13.5 L Hct 40.1 L MCV 86.4 MCH 29.1 MCHC 33.7 RDW 13.0 Plt Count 310 MPV 9.5 Sodium 140 Potassium 4.3 Chloride 103 Carbon Dioxide 29 Anion Gap 13 BUN 13 Creatinine 0.6 L Est GFR ( Amer) > 60 Est GFR (Non-Af Amer) > 60 Random Glucose 97 Calcium 9.5 Total Bilirubin 0.6 AST 17 ALT 31 Alkaline Phosphatase 70 Total Protein 6.6 Albumin 3.8 Globulin 2.7 Albumin/Globulin Ratio 1.4 Estimated Date of D/C: 03/10/18
--- NOTE | 2018-03-11 11:13 | PN ---
Copied To: Kalin Lott DO Attending MD: Kalin Lott DO DATE: 03/11/2018 SUBJECTIVE: I saw him walking through the halls of the psychiatric floor. He is doing well. He slept well last night. He is eating okay. The depression is there, but may be a little bit better. MEDICATIONS: He is on Abilify, Ambien, Ativan, Geodon, Klonopin, Maalox, milk of magnesia, Norvasc, Prozac and Tylenol. PHYSICAL EXAMINATION: VITAL SIGNS: 97.8 temp, 82 pulse, 119/80 blood pressure, 19 respiratory rates. HEENT: His head is atraumatic, normocephalic. HEART: Regular rate. LUNGS: Clear to auscultation. ABDOMEN: Soft, obese, nontender. EXTREMITIES: No edema. LABORATORY DATA: He has labs that were done 03/09/2018. The CBC was okay. The SMA-20 was okay. ASSESSMENT AND PLAN: So he has got a few things going on here in the Intensive Care Unit. He depression; hypertension, which is now controlled at 119/80. I encouraged him to take the medications, participate in group. We will continue with his treatment and care. We will follow medically. Kalin Lott DO MTDD
[2018-03-12 07:13] VITALS: RESP 20
--- NOTE | 2018-03-12 10:00 | PCM.PYCHPN ---
Psychiatric Progress Note - Psychiatric Progress Note Patient seen today, length of contact: 30 minutes Patient Chief Complaint: "a little better" Problems Identified/Issues Discussed: Patient is 58 year old male, psychiatric diagnosis of PTSD s/p 04/08, no prior admissions who was brought in by ambulance for evaluation and stabilization of depressive symptoms, suicidal ideation with a plan to jump off the bridge. Patient has demonstrated sustained improvement in symptoms of depression with Prozac, klonopin and abilify. He has been more engaged and affect is more reactive and spontaneous. Staff notes that he is attending and participating in group meetings. He is generally very pleasant and cooperative upon approach and appears relaxed on the unit. Patient has been denying suicidal thoughts for over 48 hours (though does admit to some fleeting, passive ones) --this is a huge improvement from his reported constant suicidal thoughts at admission. Patient indicates he does not want to and feels the medications have helped him on the unit. He indicates that he will continue to take them after discharge so they can reach full efficacy. Patient is tolerating these medications and denies any side effects at this time. Reports that he is sleeping better though sleep was more restless last night for some reason. He is not hallucinating and thought process has generally been coherent during my interviews with him. Diagnostic Results: 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 PTSD as per h/o Medication Change: No ( ) Medical Record Reviewed: Yes Mental Status Examination - Cognitive Function Orientation: Person, Place, Situation, Time Memory: Intact Attention: WNL Concentration: WNL Association: WNL Fund of Knowledge: WNL - Mood Mood: Depressed ( ), Anxious - Affect Affect: Constricted (does demonstrate some reactivity, improved since admission) - Formal Thought Process Formal Thought Process: No Impairment - Suicidal Ideation Suicidal Ideation: No - Homicidal Ideation Homicidal Ideation: No Goal/Treatment Plan - Goal/Treatment Plan Need for Continued Stay: Remain at risks for inpatient hospitalization, Severe depression anxiety, Discharge may exacerbated symptoms, Severe functional impairment Progress Toward Problem(s) and Goals/Treatment Plan: * c/w current tx and plan * Appreciate Dr. Lott's close f/u on 03/06/18-03/11/18 03/09/18~repeat labs from noted below * Abilify 5 mg po daily increased to 7 mg po daily on 03/09/18 for continued depression * Klonopin 1 mg po tid * Prozac 40 mg po daily increased to 50 mg po daily on 03/11/18 for depression and anxiety * Ambien 10 mg po HS prn * Vitals reviewed and noted below: Selected Entries 03/11/18 03/11/18 03/11/18 07:02 08:16 16:00 Temperature 97.8 F Pulse Rate 82 82 76 Respiratory 19 Rate Blood Pressure 119/80 119/80 140/87 * New weekend labs noted below: Laboratory Results - last 24 hr 03/09/18 03/09/18 06:30 06:30 WBC 7.9 RBC 4.64 Hgb 13.5 L Hct 40.1 L MCV 86.4 MCH 29.1 MCHC 33.7 RDW 13.0 Plt Count 310 MPV 9.5 Sodium 140 Potassium 4.3 Chloride 103 Carbon Dioxide 29 Anion Gap 13 BUN 13 Creatinine 0.6 L Est GFR ( Amer) > 60 Est GFR (Non-Af Amer) > 60 Random Glucose 97 Calcium 9.5 Total Bilirubin 0.6 AST 17 ALT 31 Alkaline Phosphatase 70 Total Protein 6.6 Albumin 3.8 Globulin 2.7 Albumin/Globulin Ratio 1.4 Estimated Date of D/C: 03/10/18
--- NOTE | 2018-03-12 13:09 | PN ---
Copied To: Kalin Lott DO Attending MD: Kalin Lott DO DATE: 03/12/2018 SUBJECTIVE: I saw him in his room this morning. He slept fairly well. he slept. He is feeling well, may be a little bit depressed still, but improving very slowly. He is on Abilify, Ambien, Ativan, Geodon, Klonopin, Maalox, milk of magnesia, Norvasc, Prozac and Tylenol. PHYSICAL EXAMINATION: VITAL SIGNS: His vital signs are 97.5 temperature, 75 pulse, 121/78 blood pressure. Blood pressure has been much better since I put him on antihypertensive medications. Respiratory rate is 20. HEENT: His head is atraumatic, normocephalic. HEART: Regular rate. LUNGS: Decreased breath sounds, but clear. ABDOMEN: Soft, obese, nontender. EXTREMITIES: No edema. MEDICATIONS: He is on Abilify, Ambien, Ativan, Geodon, Klonopin, milk of magnesia, Maalox, Norvasc, Prozac and Tylenol. I do not think the Norvasc is really making any difference. LABORATORY DATA: Last labs on 03/09/2018, he did well. Continue aggressive treatment and care by Psychiatry. I encouraged him to participate, take the medications. I understand that trying to get him to a residential for further outpatient treatment maybe. We will continue aggressive treatment and care on Mr. Tony Napoles who has depression, hypertension and he had a high blood sugar. Kalin Lott DO MTDD
[2018-03-13 07:20] VITALS: BP 125/74; PULSE 74; TEMP 98
--- NOTE | 2018-03-13 10:23 | PCM.PYCHDC ---
Mental Status Examination - Mental Status Examination Orientation: Person, Place, Situation Memory: Intact Mood: Neutral Affect: Constricted Speech: Appropriate Attention: WNL Concentration: WNL Association: WNL Fund of Knowledge: WNL Formal Thought Process: No Impairment Description of patient's judgement and insight: Fair and improved I/J Psychotic Thoughts and Behaviors: Patient denies any perceptual disturbance including hallucinations or paranoia. No delusions were elicited Suicidal Ideation: No Current Homicidal Ideation?: No Discharge Summary - Discharge Note Reason for Hospitalization: Patient is 58 year old male, psychiatric diagnosis of PTSD s/p 04/08, no prior admissions who was brought in by ambulance for evaluation and stabilization of depressive symptoms, suicidal ideation with a plan to jump off the bridge. Psychiatric History (includes Medical, Family, Personal Hx): see HPI Laboratory Data: Laboratory Tests 02/25/18 02/25/18 02/25/18 13:10 13:10 13:10 WBC 10.5 RBC 4.86 Hgb 14.3 Hct 41.2 L MCV 84.8 MCH 29.4 MCHC 34.7 RDW 12.9 Plt Count 354 MPV 9.2 Gran % 82.1 H Lymph % (Auto) 10.4 L [place] % (Auto) 6.4 H Eos % (Auto) 0.7 L Baso % (Auto) 0.4 Gran # 8.64 H Lymph # (Auto) 1.1 L [place] # (Auto) 0.7 H Eos # (Auto) 0.1 Baso # (Auto) 0.04 Sodium 137 Potassium 3.7 Chloride 99 Carbon Dioxide 26 Anion Gap 15 BUN 10 Creatinine 0.5 L Est GFR ( Amer) > 60 Est GFR (Non-Af Amer) > 60 Random Glucose 135 H Hemoglobin A1c Calcium 9.8 Magnesium 1.8 Total Bilirubin 0.7 AST 31 ALT 42 Alkaline Phosphatase 72 Total Protein 7.2 Albumin 4.5 Globulin 2.7 Albumin/Globulin Ratio 1.7 Urine Color Urine Appearance Urine pH Ur Specific Maple Urine Protein Urine Glucose (UA) Urine Ketones Urine Blood Urine Nitrate Urine Bilirubin Urine Urobilinogen Ur Leukocyte Esterase Urine RBC Urine WBC Ur Epithelial Cells Urine Bacteria Salicylates < 1 L Urine Opiates Screen Urine Methadone Screen Acetaminophen < 10.0 L Ur Barbiturates Screen Ur Phencyclidine Scrn Ur Amphetamines Screen U Benzodiazepines Scrn U Oth Cocaine Metabols U Cannabinoids Screen Alcohol, Quantitative 02/25/18 02/25/18 02/25/18 13:10 13:50 13:50 WBC RBC Hgb Hct MCV MCH MCHC RDW Plt Count MPV Gran % Lymph % (Auto) [place] % (Auto) Eos % (Auto) Baso % (Auto) Gran # Lymph # (Auto) [place] # (Auto) Eos # (Auto) Baso # (Auto) Sodium Potassium Chloride Carbon Dioxide Anion Gap BUN Creatinine Est GFR ( Amer) Est GFR (Non-Af Amer) Random Glucose Hemoglobin A1c Calcium Magnesium Total Bilirubin AST ALT Alkaline Phosphatase Total Protein Albumin Globulin Albumin/Globulin Ratio Urine Color Yellow Urine Appearance Clear Urine pH 7.0 Ur Specific Maple 1.010 Urine Protein Negative Urine Glucose (UA) Negative Urine Ketones Negative Urine Blood Negative Urine Nitrate Negative Urine Bilirubin Negative Urine Urobilinogen 0.2 Ur Leukocyte Esterase Trace H Urine RBC 0 - 2 Urine WBC 2 - 5 Ur Epithelial Cells None Urine Bacteria Few Salicylates Urine Opiates Screen Negative Urine Methadone Screen Negative Acetaminophen Ur Barbiturates Screen Negative Ur Phencyclidine Scrn Negative Ur Amphetamines Screen Negative U Benzodiazepines Scrn Negative U Oth Cocaine Metabols Negative U Cannabinoids Screen Negative Alcohol, Quantitative < 10 03/03/18 03/03/18 03/03/18 07:00 07:00 07:00 WBC 7.7 D RBC 4.72 Hgb 13.7 L Hct 41.0 L MCV 86.9 MCH 29.0 MCHC 33.4 RDW 13.2 Plt Count 315 MPV 9.2 Gran % Lymph % (Auto) [place] % (Auto) Eos % (Auto) Baso % (Auto) Gran # Lymph # (Auto) [place] # (Auto) Eos # (Auto) Baso # (Auto) Sodium 141 Potassium 4.5 Chloride 103 Carbon Dioxide 29 Anion Gap 13 BUN 15 Creatinine 0.6 L Est GFR ( Amer) > 60 Est GFR (Non-Af Amer) > 60 Random Glucose 99 Hemoglobin A1c 5.5 Calcium 9.3 Magnesium Total Bilirubin 0.5 AST 21 ALT 31 Alkaline Phosphatase 70 Total Protein 6.5 Albumin 3.9 Globulin 2.6 Albumin/Globulin Ratio 1.5 Urine Color Urine Appearance Urine pH Ur Specific Maple Urine Protein Urine Glucose (UA) Urine Ketones Urine Blood Urine Nitrate Urine Bilirubin Urine Urobilinogen Ur Leukocyte Esterase Urine RBC Urine WBC Ur Epithelial Cells Urine Bacteria Salicylates Urine Opiates Screen Urine Methadone Screen Acetaminophen Ur Barbiturates Screen Ur Phencyclidine Scrn Ur Amphetamines Screen U Benzodiazepines Scrn U Oth Cocaine Metabols U Cannabinoids Screen Alcohol, Quantitative 03/09/18 03/09/18 06:30 06:30 WBC 7.9 RBC 4.64 Hgb 13.5 L Hct 40.1 L MCV 86.4 MCH 29.1 MCHC 33.7 RDW 13.0 Plt Count 310 MPV 9.5 Gran % Lymph % (Auto) [place] % (Auto) Eos % (Auto) Baso % (Auto) Gran # Lymph # (Auto) [place] # (Auto) Eos # (Auto) Baso # (Auto) Sodium 140 Potassium 4.3 Chloride 103 Carbon Dioxide 29 Anion Gap 13 BUN 13 Creatinine 0.6 L Est GFR ( Amer) > 60 Est GFR (Non-Af Amer) > 60 Random Glucose 97 Hemoglobin A1c Calcium 9.5 Magnesium Total Bilirubin 0.6 AST 17 ALT 31 Alkaline Phosphatase 70 Total Protein 6.6 Albumin 3.8 Globulin 2.7 Albumin/Globulin Ratio 1.4 Urine Color Urine Appearance Urine pH Ur Specific Maple Urine Protein Urine Glucose (UA) Urine Ketones Urine Blood Urine Nitrate Urine Bilirubin Urine Urobilinogen Ur Leukocyte Esterase Urine RBC Urine WBC Ur Epithelial Cells Urine Bacteria Salicylates Urine Opiates Screen Urine Methadone Screen Acetaminophen Ur Barbiturates Screen Ur Phencyclidine Scrn Ur Amphetamines Screen U Benzodiazepines Scrn U Oth Cocaine Metabols U Cannabinoids Screen Alcohol, Quantitative Consultations:: List each consultation separately and include: 1. Reason for request. 2. Findings. 3. Follow-up Consultations: consulted by Dr. Lott from 03/02/18-03/12/18 Summary of Hospital Course include:: 1. Description of specific treatment plan utilized for patients during their course of treatmen. 2. Summarize the time- course for resolution of acute symptoms and/or regressed behaviors. 3. Describe issues identified and worked on during hospitalization. 4. Describe medication utilized. 5. Describe medical problems identified and treated. 6. Reassessment of suicide risk Summary of Hospital Course: Patient is 58 year old male, psychiatric diagnosis of PTSD s/p 04/08, no prior admissions who was brought in by ambulance for evaluation and stabilization of depressive symptoms, suicidal ideation with a plan to jump off the bridge. Patient has demonstrated sustained improvement in symptoms of depression with Prozac, klonopin and abilify. He has been more engaged and affect is more reactive and spontaneous. Staff notes that he is attending and participating in group meetings. He is generally very pleasant and cooperative upon approach and appears relaxed on the unit. Patient has been denying suicidal thoughts for over 72 hours (though does admit to some fleeting, passive ones in first 48 hours) --this is a huge improvement from his reported constant suicidal thoughts at admission. Patient indicates he does not want to and feels the medications have helped him on the unit. He indicates that he will continue to take them after discharge so they can reach full efficacy. Patient is tolerating these medications and denies any side effects at this time. Reports that he is sleeping better in general. He is not hallucinating and thought process has generally been coherent during my interviews with him. Patient felt comfortable with discharge plans on day of discharge. Denied any major concerns on this day. - Final Diagnosis (DSM 5) Condition upon Discharge: STABLE DSM 5: 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 PTSD as per h/ Disposition: HOME/ ROUTINE Follow-up Treatment Plan: * PLEASE REFER TO SW NOTE FOR DISCHARGE PLANS * THE FOLLOWING MEDICATIONS WERE CALLED INTO [facility] [phone] ON AT 10:20 AM: 2 WEEKS + 1RF * Abilify 7 mg po daily for depression * Klonopin 1 mg po tid FOR ANXIETY * Prozac 50 mg po daily for depression and anxiety * Ambien 10 mg po HS prn INSOMNIA Laboratory Results - last 24 hr 03/09/18 03/09/18 06:30 06:30 WBC 7.9 RBC 4.64 Hgb 13.5 L Hct 40.1 L MCV 86.4 MCH 29.1 MCHC 33.7 RDW 13.0 Plt Count 310 MPV 9.5 Sodium 140 Potassium 4.3 Chloride 103 Carbon Dioxide 29 Anion Gap 13 BUN 13 Creatinine 0.6 L Est GFR ( Amer) > 60 Est GFR (Non-Af Amer) > 60 Random Glucose 97 Calcium 9.5 Total Bilirubin 0.6 AST 17 ALT 31 Alkaline Phosphatase 70 Total Protein 6.6 Albumin 3.8 Globulin 2.7 Albumin/Globulin Ratio 1.4 - Smoking Cessation Smoking Cessation Medication prescribed: No - Antipsychotic Medications Pt discharged on 2 or more routine antipsychotic medications: No
--- NOTE | 2018-03-13 12:04 | PN ---
Copied To: Kalin Lott DO Attending MD: Kalin Lott DO DATE: 03/13/2018 SUBJECTIVE: He could be discharged today. He is on Abilify, Ambien, Klonopin, Norvasc, and Prozac. PHYSICAL EXAMINATION: VITAL SIGNS: Temperature 98, pulse 74, blood pressure 125/74, respiratory rate 20. HEENT: His head is atraumatic, normocephalic. HEART: Regular rate. LUNGS: Clear to auscultation. Abdomen: Soft, obese, nontender. EXTREMITIES: No edema. I like his medications that he is on. I would not change them. The blood pressure pills are good. Last labs on the 03/09/2018, he did well. I encourage him to continue following up on the outpatient with Psychiatry if he leaves today and if he needs to follow up with his primary care doctor, should be done next week. He should continue with the amlodipine, it is helping his blood pressure and as per Psychiatry if he goes home. He is stable today. As far as I am concerned, he is okay for discharge medically and he had depression, hypertension, and he had one high blood sugar. Kalin Lott DO
== END 2018-03-13 16:05 | disposition home or self-care (01) | DRG 885 ==
LOC: ED 12:25 → PSYC 13:48
PROVIDERS: ADMIT Psychiatry & Neurology Psychiatry; ATTEND Psychiatry & Neurology Psychiatry
DX: F32.2 Major depressive disorder, single episode, severe without psychotic features (principal); R45.851 Suicidal ideations; F43.10 Post-traumatic stress disorder, unspecified; F22 Delusional disorders; G47.00 Insomnia, unspecified; G89.29 Other chronic pain; I10 Essential (primary) hypertension; R73.9 Hyperglycemia, unspecified; Z79.899 Other long term (current) drug therapy; Z82.49 Family history of ischemic heart disease and other diseases of the circulatory system